=== PATIENT | female | born 1940 | race Caucasian/White ===

== ENCOUNTER 2025-10-21 09:22 | Emergency (ER) | payer MEDICARE, OTHER, SELFPAY ==
--- OUTSIDE RECORDS SUMMARY | 2024-11-04 13:00 | XMS_ITS ---
Author Organization [facility] Address [address] [place] [address] Phone [phone] Care Team Providers Care Value Engineer Name Role Phone Milvia Lindsay Primary Care Provider FELIPE Marcus MD [phone] REASON FOR VISIT Follow Up Social History Sex Observation Social History Observation Description Sex Observation Female Encounters Date Time Type Facility Location Provider Diagnosis 11/04/2024 01:00 PM Office [facility] [address] [address] FELIPE MORA Plan Of Treatment No Information Medical (General) History Medical History History ICD Code HX of Lung CA COPDNeuropathysleep apneacataractsSurgical History Surgery Date(Month/Year) Hospitalization History Reason Date(Month/Year) Progress Notes * MARK Nori LDOB:[birth year] (84 yo F)Acc No.[id number]:11/04/2024 Patient:??Mark Nori Marx :??Felipe Mora MDDOB:1940?Age:83 Y ?Sex:FemaleDate:11/04/2024Phone:[phone]:[address] [place] [phone]:Milvia Valenciaivavicente Subjective: * Chief Complaints: * Follow Up * Electronic signature of YUKI MORA MD on 10/21/2025 at 09:26 AM BILINGUAL ELEMENTARY SCHOOL TEACHER Sign off status: Pending * Provider: Felipe Mora MD Date: 11/04/2024 Generated for Meagan olguin/Katerin/Kmitting on: 10/21/2025 09:26 AM B[employer]INGUAL ELEMENTARY SCHOOL TEACHER
--- OUTSIDE RECORDS SUMMARY | 2025-05-05 14:15 | XMS_ITS ---
Author Organization [facility] Address [address] [place] [address] Phone [phone] Care Team Providers Care Claims Associate Name Role Phone Milvia Lindsay Primary Care Provider Nick LANGFORD MD, FELIPE Olmos REASON FOR VISIT Ears are plugged Social History Sex Observation Social History Observation Description Sex Observation Female Encounters Date Time Type Facility Location Provider Diagnosis 05/05/2025 02:15 PM Office Visit [facility] [address] [place] [address] FELIPE LANGFORD Plan Of Treatment No Information Medical (General) History Medical History History ICD Code HX of Lung CA COPDNeuropathysleep apneacataractsSurgical History Surgery Date(Month/Year) Hospitalization History Reason Date(Month/Year) Progress Notes * JAMILAGASTON Nori LDOB:[birth year] (84 yo F)Acc No.[id number]:05/05/2025 Patient:??Nori Miranda Araseli :??Felipe Langford, MDDOB:1940?Age:84 Y ?Sex:FemaleDate:05/05/2025Phone:[phone]:[address] [place] [phone]:Milvia Lindasy Subjective: * Chief Complaints: * Ears are plugged * Electronic signature of YUKI LANGFORD MD on 10/21/2025 at 09:25 AM PATENT SEARCHER Sign off status: Pending * Provider: Felipe Langford MD Date: 05/05/2025 Generated for Meagan olguin/Katerin/Kmitting on: 10/21/2025 09:25 AM PATENT SEARCHER
--- OUTSIDE RECORDS SUMMARY | 2025-09-14 13:00 | XMS_ITS | Encounter Summary ---
Author Organization [facility] Address [address] [place] [address]. [place] [address] Care Team Providers Care Heating Unit Mechanic Name Role Phone Milvia Cardona MD Primary Care P rovider Milvia Cardona MD Unavailable Carmen Diaz MD Unavailable Herbert Rdz MD Unavailable Monie Holbrook [facility] Unavailable Monie Holbrook [facility] Unavailable Reason for Visit * Diagnostic Imaging CT Scan (Routine) - ClosedSpecialtyDiagnoses / Procedures Referred By ContactReferred To ContactRadiology. Diagnoses Malignant neoplasm of bronchus and lung (H) Procedures CT Chest w/o Contrast Timoteo Goodwin MD [facility] [address] [place] [address] Phone: tel: fax: Referral IDStatusReasonStart DateExpiration DateVisits RequestedVisits [id number] Encounter Details DateTypeDepartmentCare Team (Latest Contact Info)Opuvmdtujwf85/17/2025 1:00 PM CSTAncillary Procedure [facility] [address] [place] [phone] Timoteo Goodwin MD [facility] [address] [place] [place] [address] Malignant neoplasm of bronchus and lung (H) Social History Tobacco UseTypesPacks/DayYears UsedDateSmoking Tobacco: VdvcowHtcffsojec9Ydej: 1989Passive Smoke Exposure: PastSmokeless Tobacco: NeverAlcohol UseStandard Drinks/WeekCommentsYes0 (1 standard drink = 0.6 oz pure alcohol)few drinks a monthPHQ-2AnswerDate RecordedPHQ-2 Awdhb337[facility] [place] of Occup[facility] - Occupational Stress QuestionnaireAnswerDate RecordedDo you feel stress - tense, restless, nervous, or anxious, or unable to sleep at night because yourmind is troubled all the time - these days?Only a wrbdyj7010/01/2024 Exercise Vital SignAnswerDate RecordedOn average, how many days per week do you engage in moderate to strenuous exercise (like a brisk walk)?0 days10/01/2024On average, how many minutes do you engage in exercise at this level?0 min 10/01/2024dolescent EducationAnswerDate RecordedGetting School Help NeededNot on file07/24/2023Food InsecurityAnswerDate RecordedWithin the past 12 months, did you worry that your food would run out before you got money to buy more?No 05/06/2025Within the past 12 months, did the food you bought just not last and you didn???t have money to getmore?No05/06/2025Housing StabilityAnswerDate RecordedDo you have housing? (Housing is defined as stable permanent housing and does not include staying outside in a car, in a tent, in an abandoned building, in an overnight halfway, or couch-surfing.)Yes05/06/2025re you worried about losing your housing?No05/06/2025Financial Resource StrainAnswerDate Recorded Within the past 12 months, have you or your family members you live with been unable to get utilities (heat, electricity) when it was really needed?No 07/09/2025Transportation NeedsAnswerDate RecordedWithin the past 12 months, has lack of transportation kept you from medical appointments, getting your medicines, non-medical meetings or appointments, work, or from getting things that you need?No05/06/2025Interpersonal SafetyAnswerDate RecordedDo you feel physically and emotionally safe where you currently live?Yes05/06/2025Within the past 12 months, have you been hit, slapped, kicked or otherwise physically hurt by someone?No05/06/2025Within the past 12 months, have you been humiliated or emotionally abused in other ways by your partner or ex-partner?No05/06/2025 CommentsNoSex and Gender InformationValueDate RecordedSex Assigned at BirthNot on fileLegal SnmBtfspa13/04/2012 3:08 AM CSTGender IdentityNot on file Sexual OrientationNot on filedocumented as of this encounter Plan of Treatment DateTypeDepartmentCare Team (Latest Contact Info)Anyjvqscaky95/02/2026 1:00 PM CSTOffice Visit [facility] [address] [place] [phone] Mónica Collier APRN [facility] [address] [address] 11/09/2025 7:30 AM CSTHospital Encounter [facility] [address] [place] [phone] Sarah Martinez MD [facility] [address] [address] 11/09/2025 7:30 AM WHITE WASHER - 11/09/2025 9:15 AM [facility] [address] [place] [phone] Sarah Martinez MD [facility] [address] [id number] robotic assisted ion brochoscopy and endobroncial wbqhgqlayy11/09/2026 11:00 AM CSTOffice Visit [facility] [address] [facility] [address] [place] [phone] Milvia Cardona MD [address] [place], [place] [address] 12/07/2025 12:[address] [facility] [address] [facility] [place] [phone] Milvia Cardona MD [address] [place], [place] [address] 01/18/2026 9:00 AM CDTVirtual Visit [facility] [address] [facility] [address] [place] [phone] Monie Holbrook [facility] [address] [place], [place] [phone] NamePriorityAssociated DiagnosesDate/TimeBRONCHOSCOPY, ROBOT-ASSISTED ULTRASOUND, WITH BIOPSY Lung nodule 11/09/2025 7:30 AM CSTdocumented as of this encounter Procedures Procedure NamePriorityDate/TimeAssociated DiagnosisCommentsCT CHEST W/O CONTRAST Tmtdzdc4309/14/2025 1:07 PM WHITE WASHER Malignant neoplasm of bronchus and lung (H) documented in this encounter Results * CT Chest w/o Contrast (09/14/2025 1:07 PM WHITE WASHER)Anatomical RegionLaterality ModalityChest, SUBRAD CT BODY, UMP CT CHEST, RAD CTComputed TomographySpecimen (Source)Anatomical Location / LateralityCollection Method / VolumeCollection TimeReceived Time09/14/2025 1:07 PM WHITE WASHER Impressions 09/15/2025 10:46 AM WHITE WASHER IMPRESSION: 1. ??Interval increase in size of a lobulated now spiculated masslike area involving the posteromedial aspect of the right upper lung contacting the pleural surface and now measuring 3.2 x 2 cm, previously 3.1 x 1.3 cm. Given it has slightly more soft tissue density and spiculated appearance findings are highly suspicious for malignancy. 2. ??Stable posttreatment related changes left lower lobe. 3. ??New minimal right pleural fluid. Narrative 09/15/2025 10:46 AM WHITE WASHER EXAM: CT CHEST W/O CONTRAST LOCATION: [facility] DATE: 09/14/2025 INDICATION: Malignant neoplasm of bronchus and lung. Follow-up evaluation. COMPARISON: Multiple prior studies, most recent 09/10/2024, 09/10/2023, 09/11/2022 TECHNIQUE: CT chest without IV contrast. Multiplanar reformats were obtained. Dose reduction techniques were used. CONTRAST: None. FINDINGS: LUNGS AND PLEURA: New minimal right pleural fluid. Interval increase in size of a lobulated/spiculated masslike area involving the posteromedial aspect of the right upper lung contacting the pleural surface and now measuring 3.2 x 2 cm, previously 3.1 x 1.3 cm. Given it has slightly more soft tissue density and spiculated appearance findings are highly suspicious for malignancy. Consider PET CT evaluation. Area of volume loss in the left lower lobe with spiculation reflecting stable posttreatment related change measuring 3.5 x 2.1 cm. Minimal bilateral linear scarring. Unchanged at 3 mm nodule posterior aspect right upper lobe (4/39). Wedge resection right lung. Prior lobectomy. MEDIASTINUM/AXILLAE: Enlarged left thyroid lobe. No new lymphadenopathy. No pericardial fluid. Normal caliber thoracic aorta. Minimal vascular calcification. Normal caliber esophagus. CORONARY ARTERY CALCIFICATION: Moderate. UPPER ABDOMEN: Left upper pole renal cyst, no followup. MUSCULOSKELETAL: Degenerative hypertrophic changes in the spine. Postoperative changes cervical spine. Procedure Note Stanley Harris MD - 09/15/2025 EXAM: CT CHEST W/O CONTRAST LOCATION: [facility] DATE: 09/14/2025 INDICATION: Malignant neoplasm of bronchus and lung. Follow-upevaluation. COMPARISON: Multiple prior studies, most recent 09/10/2024, 09/10/2023, 09/11/2022 TECHNIQUE: CT chest without IV contrast. Multiplanar reformats wereobtained. Dose reduction techniques were used. CONTRAST: None. FINDINGS: LUNGS AND PLEURA: New minimal right pleural fluid. Interval increase insize of a lobulated/spiculated masslike area involving the posteromedialaspect of the right upper lung contacting the pleural surface and nowmeasuring 3.2 x 2 cm, previously 3.1 x 1.3 cm. Given it has slightly more soft tissue density and spiculatedappearance findings are highly suspicious for malignancy. Consider PET CTevaluation. Area of volume loss in the left lower lobe with spiculationreflecting stable posttreatment related change measuring 3.5 x 2.1 cm. Minimal bilateral linear scarring. Unchanged at 3 mm nodule posterior aspect right upper lobe (4/39). Wedge resection right lung. Prior lobectomy. MEDIASTINUM/AXILLAE: Enlarged left thyroid lobe. No new lymphadenopathy.No pericardial fluid. Normal caliber thoracic aorta. Minimal vascularcalcification. Normal caliber esophagus. CORONARY ARTERY CALCIFICATION: Moderate. UPPER ABDOMEN: Left upper pole renal cyst, no followup. MUSCULOSKELETAL: Degenerative hypertrophic changes in the spine.Postoperative changes cervical spine. IMPRESSION: 1. Interval increase in size of a lobulated now spiculated masslike area involving the posteromedial aspect of the right upper lung contacting thepleural surface and now measuring 3.2 x 2 cm, previously 3.1 x 1.3 cm.Given it has slightly more soft tissue density and spiculated appearance findings are highly suspiciousfor malignancy. 2. Stable posttreatment related changes left lower lobe. 3. New minimal right pleural fluid. Authorizing ProviderResult TypeResult StatusLouis Bunny Goodwin MDIMG CT ORDERABLESFinal Result documented in this encounter Visit Diagnoses Diagnosis Malignant neoplasm of bronchus and lung (H) Malignant neoplasm of bronchus and lung, unspecified site Lung nodule Solitary pulmonary nodule documented in this encounter Additional Health Concerns AssessmentNoted TimePHQ-9 Depression Total Score: 12:47 PM CDT documented as of this encounter Care Teams Team MemberRelationshipSpecialtyStart DateEnd Date Milvia Cardona, MD [address] [place] [address] PCP - GeneralInternal Medicine07/08/13 Milvia Cardona MD [address] [place] [address] Assigned PCP08/04/18 Carmen Diaz MD [address] [place] [address] HospitalistEndocrinology, Diabetes, and Metabolism03/13/22 Herbert Rdz MD [address] [place] [address] Assigned Surgical Provider03/20/24 Monie Holbrook Gavin [address] [place] [address] PharmacistPharmacist03/27/24 Monie Holbrook Gavin [address] [place] [address] Assigned MTM Pharmacist04/20/24documented as of this encounter
--- OUTSIDE RECORDS SUMMARY | 2025-10-05 11:00 | XMS_ITS | Encounter Summary ---
Author Organization [facility] Address [address] [place] [address] Care Team Providers Care Rn Ortho Name Role Phone Milvia Cardona MD Primary Care P rovider Milvia Cardona MD Unavailable Carmen Diaz MD Unavailable Herbert Rdz MD Unavailable [phone] Monie Holbrook [facility] Unavailable Monie Holbrook [facility] Unavailable Reason for Visit * ReasonCommentsRECHECK Encounter Details DateTypeDepartmentCare Team (Latest Contact Info)Zlpvmxiztwh86/08/2025 11:00 AM CSTOffice Visit [address] [place] [place] [address] Milvia Cardona MD [address] [place], [place] [address] HTN, goal below 150/90 (Primary Dx); Gastroesophageal reflux disease with esophagitis without hemorrhage; Chronic obstructive pulmonary disease, unspecified COPD type (H); Dizziness -- chronic, Neg work up; Anxiety; Morbid obesity (H); JOHNY (obstructive sleep apnea); Hyperlipidemia LDL goal <130; Acquired hypothyroidism; JAMILA (generalized anxiety disorder); History of subtotal thyroidectomy Social History Tobacco UseTypesPacks/DayYears UsedDateSmoking Tobacco: RcajzaJzdyxvaqsj2Tybv: 1989Passive Smoke Exposure: PastSmokeless Tobacco: NeverAlcohol UseStandard Drinks/WeekCommentsYes0 (1 standard drink = 0.6 oz pure alcohol)few drinks a monthPHQ-2AnswerDate RecordedPHQ-2 Cgbcy901[facility] [place] of Occupational Health - Occupational Stress QuestionnaireAnswerDate RecordedDo you feel stress - tense, restless, nervous, or anxious, or unable to sleep at night because yourmind is troubled all the time - these days?Only a yulkwo2310/01/2024 Exercise Vital SignAnswerDate RecordedOn average, how many [...] in an abandoned building, in an overnight penitentiary, or couch-surfing.)Yes05/06/2025re you worried about losing your housing?No05/06/2025Financial Resource StrainAnswerDate Recorded Within the past 12 months, have you or your family members you live with been unable to get utilities (heat, electricity) when it was really needed?No 05/06/2025Transportation NeedsAnswerDate RecordedWithin the past 12 months, has [...] InformationValueDate RecordedSex Assigned at BirthNot on fileLegal XtdIbpoaz53/04/2012 3:08 AM CSTGender IdentityNot on file Sexual OrientationNot on filedocumented as of this encounter Last Filed Vital Signs Vital SignReadingTime TakenCommentsBlood Hjjvbqwj767/80112/06/2024 11:26 AM AGRICULTURAL EDUCATION PROFESSOR Cfeur399710/05/2025 10:45 AM KKSNavdektrquy55.7 ??C (98 ??F)10/05/2025 10:45 AM CSTRespiratory Cxyx655812/06/2024 10:45 AM CSTOxygen Btxkuixbuj07%10/05/2025 10:45 AM CSTInhaled Oxygen Concentration--Xlwqeg71.2 kg (201 lb)10/05/2025 10:45 AM PNWWezsol470.9 cm (4' 11)10/05/2025 10:45 AM CSTBody Mass Index40.6112/06/2024 10:45 AM CSTdocumented in this encounter Patient Instructions * Patient Instructions* Milvia Cardona MD - 10/05/2025 11:00 AM AGRICULTURAL EDUCATION PROFESSOR Increase Gabapentin to 300 mg in the evening and 300 mg at bedtime. If needed you van increase it to 600 mg in the evening and 300 mg at bedtime. Just be careful with the dizziness/drowziness next day. 2. Continue the other meds, same doses for now. 3. Monitor the blood pressure at home . If the blood pressure stays constantly higher than 170 takeHydralazine 10 mg daily 4. Keep the appointment for Nov 2025 -- we will try annual exam CULTURAL EDUCATION PROFESSOR documented in this encounter Progress Notes * Milvia Cardona MD - 10/05/2025 11:00 AM CST Images from the original note were not included. Patient's instructions / PLAN: Plan: Increase Gabapentin to 300 mg in the evening and 300 mg at bedtime. If needed you van increase it to 600 mg in the evening and 300 mg at bedtime. Just be careful with the dizziness/drowziness next day. 2. Continue the other meds, same doses for now. 3. Monitor the blood pressure at home . If the blood pressure stays constantly higher than 170 takeHydralazine 10 mg daily 4. Keep the appointment for Nov 2025 -- we will try annual exam ASSESSMENT & PLAN: 84-year-old woman with a history of right lung cancer (1997 right lobectomy, no radiation, no chemotherapy), COPD, hypertension, hyperlipidemia, obesity, GERD, adenomatous colon polyp, bilateral hip arthroplasty. Over the past 12 to 18 months, her case has become very complex due to persistent dizziness affecting her quality of life. In addition to dizziness, she now experiences intense anxiety, hand tremors, and peripheral neuropathy. The intense tremor is unlikely secondary to anxiety; possible Parkinson's disease or benign essential tremor is suspected. A neurology referral has been made. Anxiety is not well-controlled; an SSRI would be beneficial. I chose Cymbalta to also address foot pain. Chronic medical problems: - Chronic dizziness -- The patient has a history of dizziness and anxiety, with previous imaging showing age-related changes but no acute abnormalities. She has chronic conditions including hypertension, acid reflux, high cholesterol, COPD, and neuropathy. - Chronic Obstructive Pulmonary Disease (COPD) (J44.9): Managed with Trelegy Ellipta. - Chronic dizziness (R42): Stable, likely multifactorial with components of anxiety and possible vestibular dysfunction. - Anxiety (F41.9): Improved since last visit. - Neuropathy: Symptoms persist, managed with gabapentin. - Hypertension (I10): Controlled with losartan. - Hyperlipidemia: Managed with simvastatin. - GERD (K21.00): Managed with pantoprazole. - History of primary malignant neoplasm of lung (Z85.118). - Acquired hypothyroidism (E03.9). - Morbid obesity (E66.01). - JOHNY (obstructive sleep apnea) (G47.33). 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 Chr Med Prob are stable. Overall she is coping better with the dizziness. Dizziness little better in the last 2 weeks. It is because the blood pressure is on the high side? We will not change BP meds. Discussed R Lung mass increased in size. Suspicious for Ca. Already hx of Lung ca w lobectomy. F/up w dr Goodwin We reviewed her chronic medical conditions, recent test results, and current medications. Appropriate future tests and medication refills were ordered. Chief Complaint: Follow up chronic medical problems SUBJECTIVE: History of present illness Periph neurop. She feels than warm and she needs to use icepacks in the evening and before bedtime RUL mass - spiculated - suspicious for malignancy Had PET - results is not available. To be scheduled for IR biopsy w many questions - answered BP on the high side. Maybe it helps with the dizziness because she has been feeling little better in the last 2 w. ROS: ROS: negative for fever, chills, cough, wheezes, chest pain, shortness of breath, vomiting, abdominal pain, leg swelling OBJECTIVE: Physical Exam : Blood pressure (!) 148/68, pulse 83, temperature 98 ??F (36.7 ??C), temperature source Tympanic, resp. rate 14, height 1.499 m (4' 11), weight 91.2 kg (201 lb), SpO2 98%, not currently . NAD, appears comfortable Skin: no rashes Neck: supple, no JVD, No thyroidmegaly. Lymph nodes nonpalpable cervical and supraclavicular. Chest: clear to auscultation bilaterally, good respiratory effort Heart: S1 S2, RRR, no mgr appreciated Abdomen: soft, not tender, Extremities: no edema, Neurologic: A, Ox3, no focal signs appreciated PMHx: reviewed Past Medical History: Diagnosis Date Benign neoplasm of colon CERVICAL DISC DISPLACMNT 12/26/2004 COPD (chronic obstructive pulmonary disease) (H) Esophageal reflux 06/14/2006 GENERAL OSTEOARTHROSIS 06/20/2002 Glaucoma HTN, goal below 140/90 Hyperlipidemia LDL goal <130 08/28/2010 Neuropathy 03/2017 Personal history of malignant neoplasm of bronchus and lung resection Positive LIN (antinuclear antibody) normal esr. 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 Azul [facility] COLONOSCOPY N/A 06/17/2019 Procedure: COLONOSCOPY; Surgeon: Khurram Azul MD; Location: GI ESOPHAGOSCOPY, GASTROSCOPY, DUODENOSCOPY (EGD), COMBINED N/A 08/06/2014 Procedure: COMBINED ESOPHAGOSCOPY, GASTROSCOPY, DUODENOSCOPY (EGD); Surgeon: Khurram Azul MD;Location: GI ESOPHAGOSCOPY, GASTROSCOPY, DUODENOSCOPY (EGD), COMBINED N/A 06/02/2015 Procedure: COMBINED ESOPHAGOSCOPY, GASTROSCOPY, DUODENOSCOPY (EGD), BIOPSY SINGLE OR MULTIPLE; Surgeon: Deya Antonio MD; Location: GI ESOPHAGOSCOPY, GASTROSCOPY, DUODENOSCOPY (EGD), COMBINED N/A 02/12/2023 Procedure: ESOPHAGOGASTRODUODENOSCOPY, WITH BIOPSIES FOR EOSINOPHILLIC ESOPHAGITIS BY COLD BIOPSY FORCEPS; Surgeon: Stuart Forte MD; Location: GI ESOPHAGOSCOPY, GASTROSCOPY, DUODENOSCOPY (EGD), DILATATION, COMBINED N/A 03/30/2016 Procedure: COMBINED ESOPHAGOSCOPY, GASTROSCOPY, DUODENOSCOPY (EGD), DILATATION; Surgeon: Khurram Azul MD; Location: GI BEHAVIORAL THERAPIST SURGERY hysterectomy HEAD & NECK SURGERY LAPAROSCOPIC CHOLECYSTECTOMY N/A 05/06/2025 Procedure: ROBOT-ASSISTED LAPAROSCOPIC CHOLECYSTECTOMY; Surgeon: Herbert Rdz MD; Location: RHOR LUNG SURGERY right NECK SURGERY For pinched nerve, and cervical fusion. Had rods and pins placed ORTHOPEDIC SURGERY 11/2016 bilateral hips 08/2016 and 11/2016 PARATHYROIDECTOMY Left 01/17/2023 Procedure: Excision of left inferior parathyroid adenoma; Surgeon: Belkys Dennison MD; Location: RH OR [facility] NONSPECIFIC PROCEDURE retinal detach [facility] NONSPECIFIC PROCEDURE 1980 right thyroidectomy [facility] NONSPECIFIC PROCEDURE retinal detach Meds: reviewed Current Outpatient Medications Medication Sig Dispense Refill acetaminophen (TYLENOL) 500 MG tablet Take 2 tablets (1,000 mg) by mouth every 6 hours as needed for pain. albuterol (PROAIR HFA/PROVENTIL HFA/VENTOLIN HFA) 108 (90 Base) MCG/ACT inhaler Inhale 2 puffs intothe lungs every 6 hours as needed for shortness of breath, wheezing or cough azelastine (ASTELIN) 0.1 % nasal spray Long Bottom 1 spray into both nostrils 2 times daily. busPIRone (BUSPAR) 5 MG tablet Take 5 mg AM, 5 mg noon, and 10 mg bedtime 360 tablet 1 Avqtnukwucl-Ibunmpmzk-Ptfpcg (TRELEGY ELLIPTA) 100-62.5-25 MCG/ACT oral inhaler Inhale 1 puff into the lungs daily. 84 each 3 gabapentin (NEURONTIN) 300 MG capsule Take 1 capsule (300 mg) by mouth at bedtime. 90 capsule 1 losartan (COZAAR) 100 MG tablet Take 1 tablet by mouth once daily 90 tablet 2 pantoprazole (PROTONIX) 20 MG EC tablet Take 1 tablet by mouth once daily 90 tablet 1 simvastatin (ZOCOR) 20 MG tablet Take 1 tablet (20 mg) by mouth daily. 90 tablet 3 TRAVATAN 0.004 % OP SOLN Apply 1 drop to eye daily Both eyes TRELEGY ELLIPTA 100-62.5-25 MCG/INH oral inhaler INHALE 1 PUFF BY MOUTH AT THE SAME TIME EVERY DAY.RINSE AND SPIT AFTER USE bisacodyl (DULCOLAX) 5 MG EC tablet Take 1 tablet (5 mg) by mouth daily. (Patient not taking: Reported on 08/12/2025) PERMETHRIN EX CPAP (E0601) machine for home use at pressure: same , Choice of mask (A7030 or A7034)w/full face cushion (A7031) x1/mo, nasal cushion (A7032) x2/mo, or nasal pillows (A7033) x 2/mo; Length of Need: 99 months; use: Daily. DME CORNER (Patient not taking: Reported on 08/12/2025) simethicone (MYLICON) 125 MG chewable tablet Take 125 mg by mouth 4 times daily as needed. (Patientnot taking: Reported on 08/12/2025) Soc Hx: reviewed Fam Hx: reviewed 42 minutes spent on the date of the encounter doing chart review, review of outside records, review of test results, interpretation of tests, patient visit, documentation, discussion with family and The longitudinal plan of care for the diagnosis(es)/condition(s) as documented were addressed during this visit. Due to the added complexity in care, I will continue to support Kathrine in the subsequent management and with ongoing continuity of care. Chart documentation was completed, in part, with a voice-recognition software ( [employer] or [employer]). Even though reviewed, some grammatical, spelling, and word errors may remain. Milvia Lindsay MD Internal Medicine CULTURAL EDUCATION PROFESSOR documented in this encounter Nursing Notes * Heike Mccrary LPN - 10/05/2025 11:00 AM CST Chief Complaint Patient presents with RECHECK initial BP (!) 148/68 Pulse 83 Temp 98 ??F (36.7 ??C) (Tympanic) Resp 14 Ht 1.499 m (4' 11) Wt 91.2 kg (201 lb) LMP (LMP Unknown) SpO2 98% BMI 40.60 kg/m?? Estimated body mass index is 40.6 kg/m?? as calculated from the following: Height as of this encounter: 1.499 m (4' 11). Weight as of this encounter: 91.2 kg (201 lb).. bp completed using cuff size large HEIKE MCCRARY LPN CULTURAL EDUCATION PROFESSOR documented in this encounter Plan of Treatment DateTypeDepartmentCare Team (Latest Contact Info)Vvtoxswpzty41/02/2026 1:00 PM CSTOffice Visit [facility] [address] [place] [phone] Mónica Collier APRN [facility] [address] [place] [address] 11/09/2025 7:30 AM CSTHospital Encounter [facility] [address] [place] [phone] Sarah Martinez MD [facility] [address] [place] [address] 11/09/2025 7:30 AM AGRICULTURAL EDUCATION PROFESSOR - 11/09/2025 9:15 AM CSTSurgery [facility] [address] [place] [phone] Sarah Martinez MD [facility] [address] [place] [address] robotic assisted ion brochoscopy and endobroncial kyvtkzqhrp40/09/2026 11:00 AM CSTOffice Visit [address] [place] [phone] Milvia Cardona MD [address] [place], [place] [address] 12/07/2025 12:30 PM CSTAppointment [facility] [address] [facility], [address] [place] [phone] Milvia Cardona MD [address] [place] [address] 01/18/2026 9:00 AM CDTVirtual Visit [facility] [address] [facility] [address] [place] [phone] Monie Holbrook [facility] [address] [place], [place] [address] NamePriorityAssociated DiagnosesDate/TimeBRONCHOSCOPY, ROBOT-ASSISTED ULTRASOUND, WITH BIOPSY Lung nodule 11/09/2025 7:30 AM CSTdocumented as of this encounter Visit Diagnoses Diagnosis HTN, goal below 150/90- Primary Gastroesophageal reflux disease with esophagitis without hemorrhage Chronic obstructive pulmonary disease, unspecified COPD type (H) Dizziness -- chronic, Neg work up Dizziness and giddiness Anxiety Anxiety state, unspecified Morbid obesity (H) Morbid obesity JOHNY (obstructive sleep apnea) Obstructive sleep apnea (adult) (pediatric) Hyperlipidemia LDL goal <130 Other and unspecified hyperlipidemia Acquired hypothyroidism Unspecified hypothyroidism JAMILA (generalized anxiety disorder) Generalized anxiety disorder History of subtotal thyroidectomy Other postprocedural status Lung nodule Solitary pulmonary nodule documented in this encounter Additional Health Concerns AssessmentNoted TimePHQ-9 Depression Total Score: 12:47 PM CDT documented as of this encounter Care Teams Team MemberRelationshipSpecialtyStart DateEnd Date Milvia Cardona MD [address] [place] [address] PCP - GeneralInternal Medicine07/08/13 Milvia Cardona MD [address] [place] [address] Assigned PCP08/04/18 Carmen Diaz MD [address] [place] [address] HospitalistEndocrinology, Diabetes, and Metabolism03/13/22 Herbert Rdz MD [address] [place], [place] [address] Assigned Surgical Provider03/20/24 Monie Holbrook RPH [address] [place] [address] PharmacistPharmacist03/27/24 Monie Holbrook RPH [address] [place] [address] Assigned [place] Pharmacist04/20/24documented as of this encounter
--- OUTSIDE RECORDS SUMMARY | 2025-10-21 09:26 | XMS_ITS | Patient Health Record ---
Author Organization [facility] Address [address] [place] [address] Care Team Providers Care Mock Up Maker Name Role Phone Evonne Salas Primary Care Provider Broderick Santana Unavailable [phone] Allergies Allergen (clinical drug ingredient) Drug/Non Drug Allergy documented on EMR Reaction Allergy Type Onset Date Status sulfasalazine sulfasalazine Unknown Drug Allergy Active Reason For Referral No Information Medications Medication SIG (Take, Route, Frequency, Duration) Notes Start Date End Date Status Tylenol Activepantoprazole 40 mg delayed release tablet1 tab(s) orally once a day; Duration: 30 day(s)10/13/2019ActiveomeprazoleActivelosartanActiveescitalopram ActivegabapentinActiveCalcium 600+DActiveTravatanActiveMelatoninActive simvastatinActiveAspir 81Active Social History Tobacco Use: Social History Observation Description Date Details (start date - stop date) Former Smoker NA - NA Social History Social HistorySocial InfoQuestionAnswerNotesSmokingAre you a:former smoker? How long has it been since you last smoked?> 10 yearsAdditional DetailsCategory Social InfoOptionsDetailsSocial HistoryAlcoholyesoccasional Problems Problem Type SNOMED Code ICD Code Onset Dates Problem Status W/U Status Risk Notes Problem Gastro-esophageal re flux disease without esophagitis (265244855) Gastro-esophageal reflux disease without esophagitis (K21.9) ActiveconfirmedProblemEssential hypertension (46381761)Essential (primary) hypertension (I10)ActiveconfirmedProblemHyperlipidemia (75196416)Hyperlipidemia, unspecified (E78.5)ActiveconfirmedProblemDysphagia (69423374)Dysphagia (R13.10) Activeconfirmed Plan Of Treatment Pending Test Test Name Order Date EGD 10/02/2019 Insurance Providers Payer Name Payer Address Payer Phone Subscriber Number Group Number Insured Name Patient Relationship to Insured Coverage Start Date Coverage End Date Medicare [address] [place] [phone] [id number] [employer] [place] - patient is the insuredMutual of [address] Attn Claims Dept [place], [place] [id number] Nori Vergara Self - patient is the insured Medical (General) History Medical History History ICD Code Hyperlipidemia HypertensionCOPDGERDSurgical History Surgery Date(Month/Year) Left hip replacement Right hip replacementKnee replacementAppendectomyTonsillectomyCataract
--- OUTSIDE RECORDS SUMMARY | 2025-10-21 09:26 | XMS_ITS | Encounter Summary ---
Author Organization [facility] Address [address] [place] [address] Care Team Providers Care Engineering Technical Writer Name Role Phone Milvia Cardona MD Primary Care P rovider Milvia Cardona MD Unavailable Carmen Diaz MD Unavailable Herbert Rdz MD Unavailable Monie Holbrook [facility] Unavailable Monie Holbrook [facility] Unavailable [phone] Encounter Details DateTypeDepartmentCare Team (Latest Contact Info)Xaudvftaiso61/08/2025Travel Social History Tobacco UseTypesPacks/DayYears UsedDateSmoking Tobacco: HelzjgXprabzqvqg3Htjk: 1989Passive Smoke Exposure: PastSmokeless Tobacco: NeverAlcohol UseStandard Drinks/WeekCommentsYes0 (1 standard drink = 0.6 oz pure alcohol)few drinks a monthPHQ-2AnswerDate RecordedPHQ-2 Znpfn551Finblue mountain hospital [place] of Occupational Health - Occupational Stress QuestionnaireAnswerDate RecordedDo you feel stress - tense, restless, nervous, or anxious, or unable to sleep at night because yourmind is troubled all the time - these days?Only a bezcpc7910/01/2024 Exercise Vital SignAnswerDate RecordedOn average, how many [...] in an abandoned building, in an overnight usp, or couch-surfing.)Yes05/06/2025re you worried about losing your [...] InformationValueDate RecordedSex Assigned at BirthNot on fileLegal CozZdhpsk47/04/2012 3:08 AM CSTGender IdentityNot on file Sexual OrientationNot on filedocumented as of this encounter Plan of Treatment DateTypeDepartmentCare Team (Latest Contact Info)Iyoefypxhfj28/02/2026 1:00 PM CSTOffice Visit [place] [address] [place] [phone] Mónica Collier APRN [facility] [address] [place], [place] [address] 11/09/2025 7:30 AM CSTHospital [facility]counter [facility] [address] [place] [phone] Sarah Martinez MD [facility] [address] [place] [address] 11/09/2025 7:30 AM SCALEMAKER - 11/09/2025 9:15 AM CSTSurgery [facility] [address] [place] [phone] Sarah Martinez MD [facility] [address] [place] [address] robotic assisted ion brochoscopy and endobroncial fagefrhcet24/09/2026 11:[address] [facility] [address] [place] [phone] Milvia Cardona MD [address] [place] [address] 12/07/2025 12:30 PM CSTAppointment [facility] [address] [place] [phone] Milvia Cardona MD [address] [place], [place] [address] 01/18/2026 9:[address] [facility] [address] [place] [phone] Monie Holbrook RPH [address] [place] [address] NamePriorityAssociated DiagnosesDate/TimeBRONCHOSCOPY, ROBOT-ASSISTED ULTRASOUND, WITH BIOPSY Lung nodule 11/09/2025 7:30 AM CSTdocumented as of this encounter Visit Diagnoses Not on filedocumented in this encounter Additional Health Concerns AssessmentNoted TimePQ-9 Depression Total Score: 12:47 PM CDT documented as of this encounter Care Teams Team MemberRelationshipSpecialtyStart DateEnd Date Milvia Cardona MD [address] [place], [place] [phone] PCP - GeneralInternal Medicine07/08/13 Milvia Cardona MD [address] [place], [place] [address] Assigned PCP08/04/18 Carmen Diaz MD [address] [place], [place] [address] HospitalistEndocrinology, Diabetes, and Metabolism03/13/22 Herbert Rdz MD [address] [place] [address] Assigned Surgical Provider03/20/24 Monie Holbrook RPH [address] [place] [address] PharmacistPharmacist03/27/24 Monie Holbrook RPH [address] [place] [address] [facility] Pharmacist04/20/24documented as of this encounter
--- OUTSIDE RECORDS SUMMARY | 2025-10-21 09:26 | XMS_ITS ---
Author Name Interface, [id number] lity Address [address] [facility] [address] [place] [address] [facility] Address [address] [facility] [address] [place] [address] Support Name Relationship Address Phone LILIBETH FLORES Spouse Unknown Unavailable Allergies and Adverse Reactions Medication/Group Name Reaction Severity Date Sulfa (Sulfonamide Antibiotics) 09/14/2025 Plan Date Type Value 09/14/2025 APPOINTMENT OFFICE FU 15 MIN NO TREATMENT 09/14/[address] SCAN 5 MIN 09/10/2024 APPOINTMENT OUTSIDE TEST 5 M IN 09/10/2024 APPOINTMENT OV 15 MIN 09/10/2023 APPOINTMENT OV 15 MIN 09/10/2023 APPOINTMENT OUTSIDE TEST 5 M IN 09/12/2023 LAB_ORDER Chest CT w/o IV contrast 09/10/2024 LAB_ORDER Chest CT w/o IV contrast 09/14/2025 LAB_ORDER Chest CT w/o IV contrast Reason for Visit OUTSIDE TEST 5 MIN Encounters Date Name 09/10/2023 Non-small cell lung cancer (disorder) Medications Date Name Route Dose Frequency Instructions Start Date End Date Status Fill Status Indication 09/10/2023 Calcium Carbonate Oral nhmkbnxigho68/14/2022Gabapentin JvgeMUDurilcg69/14/2022yanocobalamin Oraldaily otzbez1809/11/20224265Oycgrgonsqk-Yhdiobmca-Qkogckgm Inhaler 100 mcg-62.5 mcg-25 mcg/iivdlkqaqoyykre98/14/2022spirin Tpewmrumfh53/13/2023cetaminophen OralPRN qbtkcx2109/10/2023lbuterol HFA Inhaler 90 mcg/ihzplksztjrckhj36/14/2022Losartan SafyZXCpeemxj72/13/2023rednisone Cibharzbvs03/14/2022cetaminophen Oralactive 09/10/2023Hydrochlorothiazide Ktbmpvjfltbeoiz24/14/2022imvastatin Oralactive 09/11/2022antoprazole (Sodium) Oral Delayed Ufqhfislbzouscrotw67/14/2022 escitalopram Oral Elxgmtoydzngpmxcz84/13/2023robiotics Oraldailyactive Problems Diagnosis Status Date of Diagnosis Resolution Date Non-small cell lung cancer (disorder) Active Lung nodule, solitaryActive Vital Signs Date Type Value 09/10/2023 Intravascular Systolic 124 09/10/2023 Intravascular Diastolic 74 09/10/2023 Body Temperature 97.70 09/10/2023 Heart Beat 73.00 09/10/2023 Respiratory Rate 18.00 09/10/2023 BSA 1.90 09/10/2023 Pain Scale 0.00 09/10/2023 Weight 213.40 09/10/2023 Height 59.00 09/10/2023 BMI 43.10 09/10/2023 Oxygen Saturation 93.00 Notes Section * Thoracic Visit Note Patient Name: NORI FLORES Date of :??1940 Date:??09/14/2025 THORACIC VISIT NOTE ??Mrs. Nori Flores??is seen in follow-up visit on 09/14/2025. 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 She had an area of organizing??lipoid pneumonia in the right middle lung which alsoresected.?? She is following regular basis.?? Her tolerance to activity is adequate.?? She has no significant respiratory symptoms.?? She has no symptoms of bone or brain metastases. A CT scan of the chest was done today.?? There is a masslike opacity left lower lobe lung which been stable for years.?? In the right lung disease??slightly enlarged??nodular opacity.?? This was reviewed in details.?? I will set up for a PET scan and follow-up with her as soon as this is completed. Timoteo Goodwin MD [facility] Timoteo Goodwin MD Copy to: Milvia Lindsay MD FAX Rufino Nash MD (Referring) Electronically signed by Timoteo Goodwin MD 09/16/2025 10:52 FORMING FIXER * Thoracic Visit Note Patient Name: NORI FLORES Date of :??1940 Date:??09/10/2023 THORACIC VISIT NOTE ??Mrs. Nori Flores??is seen in follow-up visit on 09/10/2023.?? She underwent in April 1998??a right thoracotomy with a right upper lobectomy??for a moderately well-differentiated adenocarcinoma of the right upper lobe lung.?? She had an area of organizing lipoid pneumonia??in the right middle lung which was also resected.?? She has been followed on a regular basis.?? Her tolerance to activity is good.?? She has no significant respiratory symptoms.?? She has no symptoms of bone or brain metastases. A follow-up CT scan of the chest??was done. ??The??masslike opacity in the??left lower lobe lung isstable and this has been present??for years.?? There is also a 2.4 cm nodule in the right lung??which is also stable.?? I do not see any suspicious findings for recurrent or metastatic disease.?? I will see her in 1 year with follow-up CT scan. Timoteo Goodwin MD [facility] Timoteo Goodiwn MD Copy to: Milvia Lindsay MD FAX Rufino Nash MD (Referring) Electronically signed by Timoteo Goodwin MD 09/16/2023 14:02 FORMING FIXER
--- OUTSIDE RECORDS SUMMARY | 2025-10-21 09:26 | XMS_ITS ---
Author Name Interface, [id number] lity Address [address] [facility] [address] [place] [address] [facility] Address [address] [facility] [address] [place] [address] Support Name Relationship Address Phone LILIBETH FLORES Spouse Unknown Unavailable Allergies and Adverse Reactions Medication/Group Name Reaction Severity Date Sulfa (Sulfonamide Antibiotics) 09/14/2025 Plan Date Type Value 11/09/2025 APPOINTMENT SURGERY 1 HR 10/01/2025 APPOINTMENT OUTSIDE TEST 5 M IN 09/14/2025 APPOINTMENT OFFICE FU 15 MIN NO TREATMENT 09/14/[address] SCAN 5 MIN 09/14/2025 LAB_ORDER Chest CT w/o IV contrast 10/01/2025 LAB_ORDER PET/CT scan, sku ll base/mid thigh 09/14/2026 LAB_ORDER Chest CT w/o IV contrast Reason for Visit OUTSIDE TEST 5 MIN Encounters Date Name 09/14/2025 Lung nodule, solitar y 09/14/2025 Non-small cell lung cancer (disorder) Medications Date Name Route Dose Frequency Instructions Start Date End Date Status Fill Status Indication 09/10/2023 Calcium Carbonate Oral ohcyihptgeu83/14/2022antoprazole (Sodium) Oral Delayed Releasedailyactive 09/11/2022yanocobalamin Eisqxmojutyjzgj43/14/0209Hibzpgwtdxu-Fkntcubtg-Jcxjxvht Inhaler 100 mcg-62.5 mcg-25 mcg/oyfzkmscubcxfhq26/14/2022spirin Oralactive 09/10/2023cetaminophen BpbjHVCovules07/13/2023lbuterol HFA Inhaler 90 mcg/ztesffmilozyzlb19/14/2022Losartan XripXOLhfhogo61/13/2023rednisone Oral xdbtxr6609/11/2022cetaminophen Upqnvlvvco15/13/2023Hydrochlorothiazide Oraldaily dqotie4509/11/2022escitalopram Oral Pygwngwzoekbgvzib27/14/2022Gabapentin OralTID qamemt5509/11/2022imvastatin Wacflevzhy62/13/2023Probiotics Oraldailyactive Problems Diagnosis Status Date of Diagnosis Resolution Date Non-small cell lung cancer (disorder) Active Lung nodule, solitaryActive Vital Signs Date Type Value 09/14/2025 Body Temperature 97.60 09/14/2025 Heart Beat 81.00 09/14/2025 Respiratory Rate 16.00 09/14/2025 Height 59.00 09/14/2025 Intravascular Systolic 164 09/14/2025 Intravascular Diastolic 79 09/14/2025 Pain Scale 0.00 09/14/2025 Oxygen Saturation 95.00 Notes Section * Thoracic Visit Note Patient [...] as this is completed. Timoteo Goodwin MD [facility] Timoteo Goodwin MD Copy to: Milvia Lindsay MD FAX Rufino Nash MD (Referring) Electronically signed by Timoteo Goodwin MD 09/16/2025 10:52 FISHING LURE ASSEMBLER
--- OUTSIDE RECORDS SUMMARY | 2025-10-21 09:26 | XMS_ITS | Encounter Summary ---
Author Organization [place] Address [address] [place] [address] Care Team Providers Care Funeral Pre Arrangement Counselor Name Role Phone Milvia Cardona MD Primary Care P rovider Milvia Cardona MD Unavailable Carmen Diaz MD Unavailable Herbert Rdz MD Unavailable [phone] Monie Holbrook [facility] Unavailable Monie Holbrook [facility] Unavailable [phone] Encounter Details DateTypeDepartmentCare Team (Latest Contact Info)Gpemvbgmhrn39/17/2025Travel Social History Tobacco UseTypesPacks/DayYears UsedDateSmoking Tobacco: OcteppVobglfsmbv7Qnqs: 1989Passive Smoke Exposure: PastSmokeless Tobacco: NeverAlcohol UseStandard Drinks/WeekCommentsYes0 (1 standard drink = 0.6 oz pure alcohol)few drinks a monthPHQ-2AnswerDate RecordedPHQ-2 Cpxpe995Finblue [facility] hospital [place] of Occupational [facility] - Occupational Stress QuestionnaireAnswerDate RecordedDo you feel stress - tense, restless, nervous, or anxious, or unable to sleep at night because yourmind is troubled all the time - these days?Only a sjvmwm7710/01/2024 Exercise Vital SignAnswerDate RecordedOn average, how many [...] in an abandoned building, in an overnight snf, or couch-surfing.)Yes05/06/2025re you worried about losing your [...] InformationValueDate RecordedSex Assigned at BirthNot on fileLegal IzwSncgnh04/04/2012 3:08 AM CSTGender IdentityNot on file Sexual OrientationNot on filedocumented as of this encounter Plan of Treatment DateTypeDepartmentCare Team (Latest Contact Info)Mzkmjhcoetk09/02/2026 1:00 PM CSTOffice Visit [place] [address] [place] [phone] Mónica Collier APRN MILLING SUPERVISOR [address] [place], [place] [address] 11/09/2025 7:30 AM CSTHospital Encounter [facility] [address] [place] [phone] Sarah Martinez MD [facility] [address] [place] [address] 11/09/2025 7:30 AM ABATEMENT WORKER - 11/09/2025 9:15 AM CSTSurgery [facility] [address] [place] [phone] Sarah Martinez MD [facility] [address] [place] [address] robotic assisted ion brochoscopy and endobroncial lopdofdspk25/09/2026 11:00 AM CSTOffice Visit [facility] [address] [place] [phone] Milvia Cardona MD [address] [place] [address] 12/07/2025 12:30 PM CSTAppointment [facility] [address], [address] [place] [phone] Milvia Cardona MD [address] [place], [place] [address] 01/18/2026 9:00 AM CDTVirtual Visit [facility] [address] [place] [phone] Monie Holbrook RPH [address] [place] [address] NamePriorityAssociated DiagnosesDate/TimeBRONCHOSCOPY, ROBOT-ASSISTED ULTRASOUND, WITH BIOPSY Lung nodule 11/09/2025 7:30 AM CSTdocumented as of this encounter Visit Diagnoses Not on filedocumented in this encounter Additional Health Concerns AssessmentNoted TimePQ-9 Depression Total Score: 12:47 PM CDT documented as of this encounter Care Teams Team MemberRelationshipSpecialtyStart DateEnd Date Milvia Cardona MD [address] [place], [place] [phone] PCP - GeneralInternal Medicine07/08/13 Milvia Cardona MD [address] [place], [place] [address] Assigned PCP08/04/18 Carmen Diaz MD [address] [place], [place] [address] HospitalistEndocrinology, Diabetes, and Metabolism03/13/22 Herbert Rdz MD [address] [place] [address] Assigned Surgical Provider03/20/24 Monie Holbrook RPH [address] [place] [address] PharmacistPharmacist03/27/24 Monie Holbrook RPH [address] [place] [address] Assigned [facility] Pharmacist04/20/24documented as of this encounter
--- OUTSIDE RECORDS SUMMARY | 2025-10-21 09:26 | XMS_ITS | Clinical Summary ---
Author Organization [facility] Address [address] [place] [address] Care Team Providers Care Model Maker Name Role Phone Milvia Cardona MD Primary Care P rovider Misty Zelaya APRN, AIRPLANE CAPTAIN Unavailable [phone] Allergies Active AllergyReactionsCriticalityNoted DateCommentsAtorvastatin CalciumNausea 06/20/20028927Zalpzauarl12/30/2013 cough UybnfkLkqekvHkbu85/23/2002Pravastatin RxatfkFxnhwu91/23/2002Sulfa (Sulfonamide Antibiotics)JruzsHtww48/20/2021 Medications MedicationSigDispense QuantityRefillsLast FilledStart DateEnd DateStatus albuterol, conc: 2.5 mg/3 mL, (PROVENTIL, VENTOLIN) Inhl nebulizer solution Nebulize 2.5 mg once a day as needed.06/19/2021ctive aspirin 81 mg oral enteric coated tablet Take 81 tablets by mouth once daily.Active calcium carbonate-vitamin D3 500 mg, 1250 mg,-200 units (OSCAL-D) oral tablet Take 500 tablets by mouth once daily.Active kvqtffdrclb-qnjkrwjqw-yvyvcjyw (TRELEGY ELLIPTA) 200-62.5-25 mcg Inhl DsDv Inhale 1 puff Daily.08/08/2021ctive fluticasone 200 mcg-vilanterol 25 mcg (BREO ELLIPTA) 200-25 mcg/dose Inhl DsDv Inhale 1 puff Daily.08/08/2021ctive albuterol-ipratropium, conc: 3-0.5mg/3mL, (DUO-NEB) Inhl nebulizer solution Nebulize 3 mL three times a day.07/07/2021ctive simvastatin (ZOCOR) 20 mg oral tablet Take 20 mg by mouth Daily.08/08/2021ctive tiotropium (SPIRIVA) 18 mcg Inhl capsule with inhalation device Inhale 18 mcg Daily.08/08/2021ctive travoprost 0.004% (TRAVATAN Z) 0.004 % Opht ophthalmic (EYE) solution Instill 0.004 drops into the eye once daily.Active umeclidinium 62.5 mcg (INCRUSE ELLIPTA) 62.5 mcg/actuation Inhl DsDv Inhale 1 puff Daily.05/11/2021ctive acetaminophen (TYLENOL) 500 mg oral tablet Take 2 tablets (1,000 mg) by mouth.01/17/2023ctive predniSONE (DELTASONE) 10 mg oral tablet Prednisone Oral activeActive hydroCHLOROthiazide (HYDRODIURIL) 12.5 mg oral tablet Hydrochlorothiazide Oral daily activeActive gabapentin (NEURONTIN) 300 mg oral capsule Take 1 capsule (300 mg) by mouth twice a day. 180 capsule ctive pantoprazole (PROTONIX) 20 mg oral delayed release tablet Take 1 tablet (20 mg) by mouth once daily.04/28/2025tive busPIRone (BUSPAR) 5 mg oral tablet Take 1 tablet in the morning, 1 tablet at noon and 2 tablets at bedtime 5Active Losartan (COZAAR) 100 mg oral tablet Take 1 tablet (100 mg) by mouth once daily.5Active Active Problems ProblemNoted DateDiagnosed DateEndogenous lipoid aymmistdc45/06/2025Pulmonary mrybckzi19/06/2025Positive LIN (antinuclear antibody)06/03/2025Dizziness 05/25/2025Symptomatic qibxdrpgkiqbzt56/09/2025hronic obstructive pulmonary yupaeip8411/27/2024 Overview (06/03/2025): PFT 03/2015 w/ mild obstruction, positive bronchodilator response, hyperventilation, mild decreased gas transfer Laryngopharyngeal reflux (LPR)10/01/2024HTN, goal below 150/9008/29/2023 Vrsnpknzxzzbs52/09/3055Qbabky50/09/2021Hip pain05/06/2021ightheadedness 05/06/2021Osteoarthritis of hip05/06/20215282Bwutpbgftuj13/09/2021History of subtotal /05/2019Stricture of /04/2019 Overview (06/03/2025): Jossue santana, s/p dilation 12/08/15, Dr. Odom Closed injury of head08/06/2019Multiple nodules of lung08/06/2019Syncope and oeotuumq88/09/2019Morbid ycuuavz4407/17/2018Scoliosis deformity of spine01/15/2018 Generalized anxiety vfjlvexv06/19/2018Lumbar vlzdrgiefklsq71/19/2018Encounter to establish care07/22/20175129Hmvhwuq74/06/2258Tfiug77/02/2756Vatodhzj37/02/2015 Inflammatory disease of the central nervous ktvjky5011/12/2014Tubulovillous adenoma of colon04/28/2014History of gastrointestinal bpfmypr4309/10/2013Gastro- esophageal reflux disease with oumpetryusc12/13/2013 Overview (06/03/2025): esoph stricture dilated 06/02/15 Tietze's tfyllkt5501/13/2013enign essential lgqaistqzkpw95/03/2013 Overview (06/03/2025): Benign essential hypertension Disorder of urinary tract12/01/2012Malaise and odlcjyy6712/01/2012Pain in limb 12/01/2012dvance care orxjtlgw43/16/2011 Overview (06/03/2025): Advance Directive Problem List Overview: Name Relationship Phone Primary Health Care Agent Alternative Health Care Agent Discussed advance care planning with patient; information given to patient to review. 06/13/2011 Flatulence, eructation and gas pain10/24/2010History of primary malignant neoplasm of lung10/24/20105850Fblvuuootgrhxm60/27/2010Lumbar icubuf2710/24/2010 Hyperlipidemia LDL goal <81749Esophageal lvlzrn5606/14/2006Old retinal detachment, xtvajmn24/10/2002Nuclear cataract, nykrfauir47/10/2002 Immunizations ImmunizationAdministration DatesNext DueInfluenza Adjuvanted (Fluad Trivalent PF)11/04/2024Influenza High Dose (Fluzone Quadrivalent PF)08/29/2023,08/22/2022, 08/08/2021,08/05/2020Influenza high dose (Fluzone Trivalent PF)07/31/2019, 07/29/2018,07/19/2017,07/17/2016,07/20/2014,07/18/2013Influenza split virus hpwuucpjt08/03/2015,07/20/2010,08/23/2007Pfizer Comirnaty 12+ Yrs COVID Vaccine Tviyylez84/07/2025,3Pneumococcal KTC3372/Pneumococcal PCV20 12/16/2024Pneumococcal Polysaccharide AZKY4173,06/13/2001RSV Bivalent PF (Abrysvo)12/16/2024SPIKEVAX (Moderna) 12+ Yrs Monovalent COVID Vaccine (deckhand clam dredge) 11/22/2021Td Adult (5 Lf TT, PF)06/13/2011Td adult absorbed PF (2 Lf)05/28/2000 Tdap06/13/2011Zoster Live05/12/2009 Family History Medical HistoryRelationCommentsHeart DiseaseNeg Family HxOsteoporosisNeg Family Hx Social History Tobacco UseTypesPacks/DayYears UsedDateSmoking Tobacco: FormerSmokeless Tobacco: NeverAlcohol UseStandard Drinks/WeekCommentsNever0 (1 standard drink = 0.6 oz pure alcohol)CommentsUnknownSex and Gender InformationValueDate Recorded Sex Assigned at BirthNot on fileLegal PlyJgmljp11/16/2021 4:12 PM CDTGender IdentityNot on fileSexual OrientationNot on file Last Filed Vital Signs Vital SignReadingTime TakenCommentsBlood Wddtsvvl266/7610 10:38 AM CDT Fvnsn9907 10:38 AM CDTTemperature--Respiratory Rate--Oxygen Saturation-- Inhaled Oxygen Concentration--Weight--Height--Body Mass Index-- Plan of Treatment Health MaintenanceDue DateLast VpjrHgwiflfzCkdpbxmeixx93/23/1943Medicare Wellness Visit1942Osteoporosis Dnqjpgrai75/23/1943epression Assessment (PHQ-2)12/21/19436330Ifckdwfpkt83/23/1947Yearly Review of HCD1992Zoster Vaccine (2 of 3)/dult Tetanus Tpzcnra95, 06/13/2011, 05/28/2000COVID-19 Vaccine ( season)/04/2025, 08/29/2023, 11/22/2021Influenza Vaccine (#1)/04/2025, 08/29/2023, 08/22/2022, Additional history existsThyroid-Stimulating Hormone (TSH)09/29/2025 09/29/2024, 1Pneumococcal 50+ OytaoXgttsgedk70/18/2025, 07/15/2015, 04/21/2008, Additional history existsRSV GpqzpeufUhpopqcgj15/18/2025 Meningococcal B VaccineAged OutNo longer eligible based on patient's age to complete this topic Insurance Care Teams Team MemberRelationshipSpecialtyStart DateEnd Date Milvia Cardona MD PCP - General07/14/21 Misty Zelaya, HVAC INSTRUCTOR, AIRPLANE CAPTAIN [address] [facility] [address] [place] [address] Neurology11/15/23
--- OUTSIDE RECORDS SUMMARY | 2025-10-21 09:26 | XMS_ITS | Clinical Summary ---
Author Organization [facility] Address [address] [place] [address] Care Team Providers Care Food Production Manager Name Role Phone Milvia Cardona MD Primary Care P rovider Milvia Cardona MD Unavailable Carmen Diaz MD Unavailable Herbert Rdz MD Unavailable [phone] Monie Holbrook [facility] Unavailable Monie Holbrook [facility] Unavailable Allergies Active AllergyReactionsCriticalityNoted DateCommentsAtorvastatin CalciumNausea Low06/20/20020643DcsbxkjvhxFoalnRle10/30/2013 cough YfnnvfBclgbnVruf12/23/2002Pravastatin LgizuiSidjijQha46/23/2002Sulfa Antibiotics Hives,MgbkxxhUnew47/15/2024 Medications MedicationSigDispense QuantityRefillsLast FilledStart DateEnd DateStatus TRAVATAN 0.004 % OP SOLN Apply 1 drop to eye daily Both eyesActive TRELEGY ELLIPTA 100-62.5-25 MCG/INH oral inhaler INHALE 1 PUFF BY MOUTH AT THE SAME TIME EVERY DAY. RINSE AND SPIT AFTER USE 06/07/2022ctive albuterol (PROAIR HFA/PROVENTIL HFA/VENTOLIN HFA) 108 (90 Base) MCG/ACT inhaler Inhale 2 puffs into the lungs every 6 hours as needed for shortness of breath, wheezing or coughActive PERMETHRIN EX CPAP (E0601) machine for home use at pressure: same , Choice of mask (A7030 or A7034) w/full face cushion (A7031) x1/mo, nasal cushion (A7032) x2/mo, or nasal pillows (A7033) x 2/mo; Length of Need: 99 months; use: Daily. DME CORNER 5Active simethicone (MYLICON) 125 MG chewable tablet Take 125 mg by mouth 4 times daily as needed.Active acetaminophen (TYLENOL) 500 MG tablet Indications:HyperparathyroidismTake 2 tablets (1,000 mg) by mouth every 6 hours as needed for pain.5Active bisacodyl (DULCOLAX) 5 MG EC tablet Indications:ConstipationTake 1 tablet (5 mg) by mouth daily.5Active Additional Information Patient not taking.Reason: Other, Reported on 08/12/2025 simvastatin (ZOCOR) 20 MG tablet Indications:Hyperlipidemia LDL goal <130Take 1 tablet (20 mg) by mouth daily. 90 tablet 5Active azelastine (ASTELIN) 0.1 % nasal spray [place] 1 spray into both nostrils 2 times daily.Active losartan (COZAAR) 100 MG tablet Indications:HTN, goal below 150/90Take 1 tablet by mouth once daily 90 tablet 5Active busPIRone (BUSPAR) 5 MG tablet Indications:AnxietyTake 5 mg AM, 5 mg noon, and 10 mg bedtime 360 tablet 5Active gabapentin (NEURONTIN) 300 MG capsule Indications:Peripheral polyneuropathyTake 1 capsule (300 mg) by mouth at bedtime. 90 capsule 5Active Feosffydnkh-Sqvzufigl-Disoyb (TRELEGY ELLIPTA) 100-62.5-25 MCG/ACT oral inhaler Indications:Chronic obstructive pulmonary disease, unspecified COPD type (H) Inhale 1 puff into the lungs daily. 84 each 5Active pantoprazole (PROTONIX) 20 MG EC tablet Indications:Gastroesophageal reflux disease with esophagitis without hemorrhage Take 1 tablet (20 mg) by mouth daily. 90 tablet 5Active hydrALAZINE (APRESOLINE) 10 MG tablet Indications:HTN, goal below 150/90Take 1 tablet (10 mg) by mouth daily as needed for high blood pressure. 30 tablet 5Active pantoprazole (PROTONIX) 20 MG EC tablet Indications:Gastroesophageal reflux disease with esophagitis without hemorrhage Take 1 tablet by mouth once daily 90 tablet Discontinued(Reorder (No AVS)) Active Problems ProblemNoted DateDiagnosed SeswNqvkxbxii94/28/2025 Assessment & Plan (05/25/2025 8:59 PM CDT): Chronic Symptomatic mdsuhugprvdcmf89/09/2025Laryngopharyngeal reflux (LPR)10/01/2024HTN, goal below 150/9008/29/20237339Vmdonkqyiqhvl28/09/7925Cfjswz95/09/2021Hip pain 05/06/20214056Ygqvffiyocwfnfz37/09/2021Osteoarthritis of hip05/06/2021Tachycardia 05/06/2021History of subtotal fstbvxxfzkuha18/05/2019Malaise and fatigue 10/02/2019Stricture of ejqauztaf75/04/2019 Overview (12/14/2023): Jossue santana, s/p dilation 12/08/15, Dr. Odom Closed injury of head08/06/2019Multiple nodules of lung08/06/2019Syncope and uobnipnh53/09/2019Morbid worocpk3907/17/2018Scoliosis deformity of spine01/15/2018 Generalized anxiety fimseytu74/19/2018Lumbar kjeeetuagwmfk51/19/2018PMH 2017: PMHx of R Lung Ca ( 1997 R lobectomy, no Rx, no chemo), COPD, HTN, Hyperlipidemia, obesity, GERD, adenom colon polyp, bilat hips arthroplasty, lives [place] 1[place]2 [place].07/22/20177044Fxtvuah84/06/4514Wzcttrma19/03/2015Cough 11/30/2014Inflammatory disease of the central nervous ewpcld8611/12/2014 Tubulovillous adenoma of colon - no polyps colonoscopy 2018 - no further hojiybdqvolgr67/01/2014Gastro-esophageal reflux disease with esophagitis 09/11/2013History of gastrointestinal weinydy9609/11/2013Tietze's disease 01/13/2013Disorder of urinary tract12/01/2012Pain in limb12/01/2012enign essential txxuqmnwacom57/03/2013 Overview (10/01/2024): Benign essential hypertension Advance care yfxctrhn09/16/2011 Overview (06/13/2011): Advance Directive Problem List Overview: Name Relationship Phone Primary Health Care Agent Alternative Health Care Agent Discussed advance care planning with patient; information given to patient to review. 06/13/2011 History of primary malignant neoplasm of lung10/25/2010Flatulence, eructation and gas pain10/24/20109173Gzzqnxcimslitv90/27/2010Hyperlipidemia LDL goal <130 08/28/2010ESOPHAGEAL EKNLEU1206/14/2006Generalized osteoarthrosis, unspecified site06/20/2002Positive LIN (antinuclear antibody) Resolved Problems ProblemNoted DateDiagnosed DateResolved DateNon-small cell lung oyhanf9612/14/2023 06/13/2024Endogenous lipoid xaudyimnw73/Pulmonary embolism /dvanced directives, counseling/txwbibiqpg05/03/2019 04/14/2024Mild chronic obstructive pulmonary boxjezh94 Overview (10/01/2024): Mild chronic obstructive pulmonary disease - PFT 03/2015 w/ mild obstruction, positive bronchodilator response, hyperventilation, mild decreased gas transfer Lung Ca, f/u with dr Goodwin ([facility]) ^^^^^^^ ( 1998, R lobectomy, no Rx or chemo) 02/04/enign essential ezbbhxvooryt06Other postprocedural status(V45.89)COPD, moderate ([facility]) ^^^ Displacement of cervical intervertebral disc without rxphlpkazj75HTN, goal below 140/9008/29/2023 Encounters DateTypeDepartmentCare GipaFumqotdgtim50/08/2025 11:00 AM CSTOffice Visit [facility] [address] [place] [phone] Milvia Cardona MD HTN, goal below 150/90 (Primary Dx); Gastroesophageal reflux disease with esophagitis without hemorrhage; Chronic obstructive pulmonary disease, unspecified COPD type (H); Dizziness -- chronic, Neg work up; Anxiety; Morbid obesity (H); JOHNY (obstructive sleep apnea); Hyperlipidemia LDL goal <130; Acquired hypothyroidism; JAMILA (generalized anxiety disorder); History of subtotal hycowvrsncaht99/08/9615Jmlibj07/17/2025 1:00 PM CSTAncillary Procedure [facility] [address] [place] [phone] Timoteo Goodwin MD Malignant neoplasm of bronchus and lung (H)09/14/20256190Ntwsoc08/15/2025 10:00 AM CDTOffice Visit [facility] [address] [place] [phone] Milvia Cardona MD Chronic obstructive pulmonary disease, unspecified COPD type (H) (Primary Dx); Dizziness -- chronic, Neg work up; PMH 2017: PMHx of R Lung Ca ( 1997 R lobectomy, no Rx, no chemo), COPD, HTN, Hyperlipidemia, obesity, GERD, adenom colon polyp, bilat hips arthroplasty, [place] for 1/[place].; Anxiety; HTN, goal below 150/90; History of subtotal thyroidectomy; History of primary malignant neoplasm of lung; Acquired hypothyroidism; Gastroesophageal reflux disease with esophagitis without hemorrhage; Morbid obesity (H); JOHNY (obstructive sleep apnea)08/12/2025Travelfrom Last 3 Months Immunizations ImmunizationAdministration DatesNext DueCOVID-19 12+ (Pfizer)08/29/2023OVID-19 Monovalent 18+ (Moderna)11/22/2021Flu 65+ (Fluad)11/04/2024Influenza (High Dose) Trivalent,PF (Fluzone)07/31/2019,07/29/2018,07/19/2017,07/17/2016,07/20/2014, 07/18/2013Influenza (IIV3) PF08/31/2015,07/20/2010,08/23/2007Influenza Vaccine 65+ (Fluzone HD)08/29/2023,08/22/2022,08/08/2021,08/05/2020Pneumo Conj 13-V (2010&after)07/15/2015Pneumococcal 20 valent Conjugate (Prevnar 20)12/16/2024 Pneumococcal 23 yfinld6804/21/2008,06/13/2001RSV (Abrysvo)12/16/2024TD,PF 7+ (Tenivac)06/13/2011,05/28/2000TDAP (Adacel,Boostrix)06/13/2011Td (Adult), Tuheucxp05/31/2000Zoster vaccine, live05/12/2009 Family History Medical HistoryRelationCommentsNo Known ProblemsBrotherHeart DiseaseFatherBreast CancerMaternal AuntBreast CancerMaternal GrandmotherAlzheimer DiseaseMother OsteoporosisMotherBlood DiseasePaternal GrandfatherCancerPaternal GrandfatherNo Known ProblemsPaternal GrandmotherColon CancerNo family hx ofOvarian CancerNo family hx ofRelationStatusCommentsBrotherDeceasedDaughterFatherDeceasedMaternal AuntMaternal GrandmotherDeceasedMotherDeceasedPaternal AuntPaternal Grandfather DeceasedPaternal GrandmotherDeceasedSisterSon Social History Tobacco UseTypesPacks/DayYears UsedDateSmoking Tobacco: ZhekerKjjwuikjpz7Kmeo: 1990Passive Smoke Exposure: PastSmokeless Tobacco: Never Tobacco Cessation:Counseling Given: Yes Alcohol UseStandard Drinks/WeekCommentsYes0 (1 standard drink = 0.6 oz pure alcohol)few drinks a monthPHQ-2AnswerDate RecordedPHQ-2 Dxojf182[facility] [place] of Occup[facility] - Occupational Stress QuestionnaireAnswerDate RecordedDo you feel stress - tense, restless, nervous, or anxious, or unable to sleep at night because yourmind is troubled all the time - these days?Only a bjzaot9410/01/2024Exercise Vital SignAnswerDate RecordedOn average, how many days per week do you engage in moderate to strenuous exercise (like a brisk walk)?0 days10/01/2024On average, how many minutes do you engage in exercise at this level?0 min10/01/2024dolescent EducationAnswerDate RecordedGetting School Help NeededNot on file07/24/2023Food InsecurityAnswerDate RecordedWithin the past 12 months, did you worry that your food would run out before you got money to buy more?No05/06/2025Within the past 12 months, did the food you bought just not last and you didn???t have money to getmore?No05/06/2025Housing StabilityAnswer Date RecordedDo you have housing? (Housing is defined as stable permanent housing and does not include staying outside in a car, in a tent, in an abandoned building, in an overnight correction, or couch-surfing.)Yes05/06/2025re you worried about losing your housing?05/06/2025Financial Resource Strain AnswerDate RecordedWithin the past 12 months, have you or your family members you live with been unable to get utilities (heat, electricity) when it was really needed?No05/06/2025Transportation NeedsAnswerDate RecordedWithin the past 12 months, has lack of transportation kept you from medical appointments, getting your medicines, non-medical meetings or appointments, work, or from getting things that you need?No05/06/2025Interpersonal SafetyAnswerDate Recorded Do you feel physically and emotionally safe where you currently live?Yes 05/06/2025Within the past 12 months, have you been hit, slapped, kicked or otherwise physically hurt by someone?No05/06/2025Within the past 12 months, have you been humiliated or emotionally abused in other ways by your partner or ex-partner?No05/06/2025CommentsNoSex and Gender InformationValueDate RecordedSex Assigned at BirthNot on fileLegal CfyDhnxub68/04/2012 3:08 AM CORPORATE OPERATIONS COMPLIANCE MANAGER Gender IdentityNot on fileSexual OrientationNot on file Last Filed Vital Signs Vital SignReadingTime TakenCommentsBlood Ffsxxnfs508/80112/06/2024 11:26 AM CORPORATE OPERATIONS COMPLIANCE MANAGER Cekzz248010/05/2025 10:45 AM OTVHfqqbqgviqz22.7 ??C (98 ??F)10/05/2025 10:45 AM CSTRespiratory Nvnc908512/06/2024 10:45 AM CSTOxygen Ghvfgqesah46%10/05/2025 10:45 AM CSTInhaled Oxygen Concentration--Kihejr23.2 kg (201 lb)10/05/2025 10:45 AM MWYSshgsi788.9 cm (4' 11)10/05/2025 10:45 AM CSTBody Mass Index40.6112/06/2024 10:45 AM CORPORATE OPERATIONS COMPLIANCE MANAGER Plan of Treatment DateTypeDepartmentCare Team (Latest Contact Info)Mjfrvigtivd01/02/2026 1:00 PM CSTOffice Visit [facility] [address] [place] [phone] Mónica Collier APRN INSTRUMENT MAKER APPRENTICE [address] [place] [address] 11/09/2025 7:30 AM CSTHospital Encounter [facility] [address] [place] [phone] Sarah Martinez MD [facility] [address] [place] [address] 11/09/2025 7:30 AM CORPORATE OPERATIONS COMPLIANCE MANAGER - 11/09/2025 9:15 AM CSTSurgery [facility] [address] [place] [phone] Sarah Martinez MD [facility] [address] [place] [phone] robotic assisted ion brochoscopy and endobroncial sgranlcjjg89/09/2026 11:00 AM CSTOffice Visit [facility] [address] [facility] [address] [place] [phone] Milvia Cardona MD [address] [place], [place] [address] 12/07/2025 12:30 PM CSTAppointment [facility] [address] [facility] [place] [phone] Milvia Cardona MD [address] [place], [place] [address] 01/18/2026 9:00 AM CDTVirtual Visit [facility] [address] [place] [phone] Monie Holbrook [facility] [address] [place], [place] [phone] NamePriorityAssociated DiagnosesDate/TimeBRONCHOSCOPY, ROBOT-ASSISTED ULTRASOUND, WITH BIOPSY Lung nodule 11/09/2025 7:30 AM CSTHealth MaintenanceDue DateLast DoneCommentsCOPD ACTION PLAN3CT NPEAHHCMMJZH87/23/1943FLEX SIG1942sDNA (Cologuard) 1940ZOSTER VACCINE (2 of 3)07/07/2009079365FWR42 DTAP/TDAP/TD VACCINE (3 - Td or Tdap), 06/13/2011, 05/28/2000, Additional history jopqpzZDEQNLDIGUM42, 06/17/2019, 06/17/2014, Additional history existsCOVID-19 VACCINE ( season)/04/2025, 08/29/2023, 11/22/2021INFLUENZA VACCINE (#1) /04/2025, 08/29/2023, 08/22/2022, Additional history existsLIPID , 08/29/2023, 08/16/2022, Additional history existsTSH W/FREE T4 YZSCAX90, 12/05/2023, 08/16/2022, Additional history existsFALL RISK CFMSZFLPTF75, 11/15/2023, 08/29/2023, Additional history existsMEDICARE ANNUAL WELLNESS VISIT, 08/29/2023, 08/22/2022, Additional history existsANNUAL REVIEW OF HM ORDERS , 06/13/2024, 08/22/2022BMP/11/2024, 09/29/2024, 12/05/2023, Additional history existsGAD BJSYPTLQZB41, 10/01/2024, 08/29/2023, Additional history existsADVANCE CARE OJLBAPCT16/02/2030 04/29/2025, 10/01/2024, 06/13/2024, Additional history dbphqmWOXK15/03/2034 03/31/2019, 03/31/2019, 07/07/2015, Additional history existsSPIROMETRYCompleted 11/27/2024, 11/22/2023, 11/22/2023, Additional history existsPNEUMOCOCCAL VACCINE 50+ BWBVVZyazltbxx78/18/2025, 07/15/2015, 04/21/2008, Additional history existsRSV FTLHLAFTcojqhmqj77/18/2025PHQ-2 (once per calendar year)Completed 04/29/2025, 04/29/2025, 11/24/2024, Additional history existsCOLORECTAL CANCER SCREENINGDiscontinuedHPV VACCINE (No Doses Required)CompletedMENINGITIS VACCINE Aged OutNo longer eligible based on patient's age to complete this topic Procedures Procedure NamePriorityDate/TimeAssociated DiagnosisCommentsCT CHEST W/O CONTRAST Plfnvze7009/14/2025 1:07 PM CORPORATE OPERATIONS COMPLIANCE MANAGER Malignant neoplasm of bronchus and lung (H) COMPREHENSIVE METABOLIC BODWUMaxagkk22/02/2025 2:02 PM CDT HTN, goal below 150/90 TSH WITH FREE T4 ETIROAYjnhzlh65/02/2024 9:42 AM CORPORATE OPERATIONS COMPLIANCE MANAGER Hyperlipidemia LDL goal <130 Peripheral polyneuropathy Routine general medical examination at a health care facility HTN, goal below 150/90 LIPID REFLEX TO DIRECT LDL BUJUFLnuobph01/02/2024 9:42 AM CORPORATE OPERATIONS COMPLIANCE MANAGER Hyperlipidemia LDL goal <130 Peripheral polyneuropathy Routine general medical examination at a health care facility HTN, goal below 150/90 PULMONARY FUNCTION TEST - HIM SCAN11/22/2023 12:00 AM CSTCOLONOSCOPYRoutine 06/17/2019 11:46 AM CDT DX BONE SBPFHAMBauzogp40/03/2019 2:42 PM CDT Asymptomatic postmenopausal status ZZCL FECAL COLORECTAL CANCER SCN-UGNVzxaivy00/10/2010 7:00 AM CDT Routine Medical Exam from Last 3 Months or Most Recently Relevant to Health Maintenance Results * CT Chest w/o Contrast (09/14/2025 1:07 PM CORPORATE OPERATIONS COMPLIANCE MANAGER)Anatomical RegionLaterality ModalityChest, SUBRAD CT BODY, UMP CT CHEST, RAD CTComputed TomographySpecimen (Source)Anatomical Location / LateralityCollection Method / VolumeCollection TimeReceived Time09/14/2025 1:07 PM CORPORATE OPERATIONS COMPLIANCE MANAGER Impressions 09/15/2025 10:46 AM CORPORATE OPERATIONS COMPLIANCE MANAGER IMPRESSION: 1. ??Interval increase in size of [...] right pleural fluid. Narrative 09/15/2025 10:46 AM CORPORATE OPERATIONS COMPLIANCE MANAGER EXAM: CT CHEST W/O CONTRAST LOCATION: [facility] DATE: 09/14/2025 INDICATION: Malignant neoplasm of bronchus [...] 09/15/2025 EXAM: CT CHEST W/O CONTRAST LOCATION: [facility] DATE: 09/14/2025 INDICATION: Malignant neoplasm of bronchus [...] fluid. Authorizing ProviderResult TypeResult StatusLouis Bunny Goodwin [facility] CT ORDERABLESFinal Result * (ABNORMAL) Comprehensive metabolic panel (04/29/2025 2:02 PM CDT)Component ValueRef RangeTest MethodAnalysis TimePerformed AtPathologist SignatureSodium 020123 - 145 mmol/L04/30/2025 3:35 AM CDTUU LABORATORYPotassium4.43.4 - 5.3 mmol/L04/30/2025 3:35 AM CDTUU LABORATORYCarbon Dioxide (CO2)2722 - 29 mmol/L 04/30/2025 3:35 AM CDTUU LABORATORYAnion Skc904 - 15 mmol/L04/30/2025 3:35 AM CDTUU LABORATORYUrea Yeuxhfdp83.98.0 - 23.0 mg/dL04/30/2025 3:35 AM CDTUU LABORATORYCreatinine0.690.51 - 0.95 mg/dL04/30/2025 3:35 AM CDTUU LABORATORY GFR Kpfzjnls47>60 mL/min/1.17s66804/30/2025 3:35 AM CDTUU LABORATORYComment:eGFR calculated using 2020 CKD-EPI equation.Calcium9.98.8 - 10.4 mg/dL04/30/2025 3:35 AM CDTUU IKDRSEEPOVIpvvxihp23268 - 107 mmol/L04/30/2025 3:35 AM CDTUU UCCTGBKFGCBbxwdfn636(H)70 - 99 mg/dL04/30/2025 3:35 AM CDTUU LABORATORY Alkaline Tbrgmkoxnzo6869 - 150 U/L04/30/2025 3:35 AM CDTUU FTULKEZQFNWXM216 - 45 U/L04/30/2025 3:35 AM CDTUU BOKOWQVVRYEGK604 - 50 U/L04/30/2025 3:35 AM CDT UU LABORATORYProtein Total6.96.4 - 8.3 g/dL04/30/2025 3:35 AM CDTUU LABORATORY Albumin4.43.5 - 5.2 g/dL04/30/2025 3:35 AM CDTUU LABORATORYBilirubin Total0.3 <=1.2 mg/dL04/30/2025 3:35 AM CDTUU LABORATORYSpecimen (Source)Anatomical Location / LateralityCollection Method / VolumeCollection TimeReceived Time BloodBLOOD SPECIMEN / UnknownVenipuncture / Kgrpjhr2804/29/2025 2:02 PM CDT 04/29/2025 2:02 PM CDT Narrative Authorizing ProviderResult TypeResult StatusDiana Ashley Cardona MDLAB - BLOOD ORDERABLESFinal ResultPerforming OrganizationAddressCity/State/ZIP Code Phone Number [facility] [place] [facility] [address] [place] [address], [place] * TSH with free T4 reflex (09/29/2024 9:42 AM CORPORATE OPERATIONS COMPLIANCE MANAGER)ComponentValueRef RangeTest MethodAnalysis TimePerformed AtPathologist SignatureTSH1.350.30 - 4.20 uIU/mL 09/30/2024 12:45 AM CSTUU LABORATORYSpecimen (Source)Anatomical Location / LateralityCollection Method / VolumeCollection TimeReceived TimeBloodBLOOD SPECIMEN / UnknownVenipuncture / Siboawq1409/29/2024 9:42 AM CST09/29/2024 9:42 AM CORPORATE OPERATIONS COMPLIANCE MANAGER Narrative Authorizing ProviderResult TypeResult StatusDiana Ashley Cardona MDLAB - BLOOD ORDERABLESFinal ResultPerforming OrganizationAddressCity/State/ZIP Code Phone Number [facility] [address], [address] [place] [phone] * Lipid panel reflex to direct LDL Fasting (09/29/2024 9:42 AM CORPORATE OPERATIONS COMPLIANCE MANAGER)Component ValueRef RangeTest MethodAnalysis TimePerformed AtPathologist Signature Jbsqyezbnat461<200 mg/dL09/30/2024 12:45 AM CSTUU ZQJYXHKRJCRkpvvqycfdure796 <150 mg/dL09/30/2024 12:45 AM CSTUU LABORATORYDirect Measure HDL60>=50 mg/dL 09/30/2024 12:45 AM CSTUU LABORATORYLDL Cholesterol Bmtmyswvmt33<100 mg/dL 09/30/2024 12:45 AM CSTUU LABORATORYNon HDL Zyafpxnntwd002<130 mg/dL09/30/2024 12:45 AM CSTUU LABORATORYPatient Fasting > 8hrs?Yes09/30/2024 12:45 AM CSTUU LABORATORYSpecimen (Source)Anatomical Location / LateralityCollection Method / VolumeCollection TimeReceived TimeBloodBLOOD SPECIMEN / UnknownVenipuncture / Sxxtfdq4409/29/2024 9:42 AM CST09/29/2024 9:42 AM CORPORATE OPERATIONS COMPLIANCE MANAGER Narrative [facility] - 09/30/2024 12:45 AM CORPORATE OPERATIONS COMPLIANCE MANAGER Cholesterol Desirable: < 200 mg/dL Borderline High: 200 - 239 mg/dL High: >= 240 mg/dL Triglycerides Normal: < 150 mg/dL Borderline High: 150 - 199 mg/dL High: 200-499 mg/dL Very High: >= 500 mg/dL Direct Measure HDL Female: >= 50 mg/dL Male: >= 40 mg/dL LDL Cholesterol Desirable: < 100 mg/dL Above Desirable: 100 - 129 mg/dL Borderline High: 130 - 159 mg/dL High: ??160 - 189 mg/dL Very High: >= 190 mg/dL Non HDL Cholesterol Desirable: < 130 mg/dL Above Desirable: 130 - 159 mg/dL Borderline High: 160 - 189 mg/dL High: 190 - 219 mg/dL Very High: >= 220 mg/dL Authorizing ProviderResult TypeResult StatusAshleyana Ashley Cardona MDLAB - BLOOD ORDERABLESFinal ResultPerforming OrganizationAddressCity/State/ZIP Code Phone Number [facility] [address] [place] [phone] * PULMONARY FUNCTION TEST - HIM SCAN (11/22/2023 12:00 AM CORPORATE OPERATIONS COMPLIANCE MANAGER)Anatomical Region LateralityModalityOtherSpecimen (Source)Anatomical Location / Laterality Collection Method / VolumeCollection TimeReceived Time11/22/2023 Narrative Authorizing ProviderResult TypeResult StatusProvider OutsidePFT ORDERABLESFinal Result * COLONOSCOPY (06/17/2019 11:46 AM CDT)ComponentValueRef RangeTest Method Analysis TimePerformed AtPathologist SignatureCOLONOSCOPYFaSt. Mary's Hospital Patient Name: Nori MarxDuong Ruth ?Procedure Date: 06/17/2019 11:46 AM ? Date of : 1940 ?Admit Type: Outpatient Age: 78 ? Gender: Female Attending MD: Khurram Azul MD ?? Total Sedation Time: 17_minutes continuous bedside 1:1 Procedure: ?Colonoscopy Indications: ?High risk colon cancer surveillance: Personal ?history of colonic polyps Providers: ?Khurram Azul MD (Doctor) Referring MD: ? Milvia Cardona MD (Referring MD) Medicines: ?Midazolam 2 mg IV, Fentanyl 100 micrograms IV, ?Ondansetron 4 mg IV Complications: ?No immediate complications. Procedure: ?Pre-Anesthesia Assessment: ?- Prior to the procedure, a History and Physical ?was performed, and patient medications and ?allergies were reviewed. The patient is competent. ?The risks and benefits of the procedure and the ?sedation options and risks were discussed with the ?patient. All questions were answered and informed ?consent was obtained. Patient identification and ?proposed procedure were verified by the physician ?in the procedure room. Mental Status Examination: ?alert and oriented. Airway Examination: normal ?oropharyngeal airway and neck mobility. Respiratory ?Examination: clear to auscultation. CV Examination: ?normal. Prophylactic Antibiotics: The patient does ?not require prophylactic antibiotics. Prior ?Anticoagulants: The patient has taken no previous ?anticoagulant or antiplatelet agents. ASA Grade ?Assessment: II - A patient with mild systemic ?disease. After reviewing the risks and benefits, ?the patient was deemed in satisfactory condition to ?undergo the procedure. The anesthesia plan was to ?use moderate sedation / analgesia (conscious ?sedation). Immediately prior to administration of ?medications, the patient was re-assessed for ?adequacy to receive sedatives. The heart rate, ?respiratory rate, oxygen saturations, blood ?pressure, adequacy of pulmonary ventilation, and ?response to care were monitored throughout the ?procedure. The physical status of the patient was ?re-assessed after the procedure. ?After obtaining informed consent, the colonoscope ?was passed under direct vision. Throughout the ?procedure, the patient's blood pressure, pulse, and ?oxygen saturations were monitored continuously. The ?colonoscopy was performed without difficulty. The ?patient tolerated the procedure well. The quality ?of the bowel preparation was good. ? Findings: ? The perianal and digital rectal examinations were normal. ? A few small-mouthed diverticula were found in the sigmoid colon and ? transverse colon. ? The exam was otherwise without abnormality on direct and retroflexion ? views. ? Impression: ? - Diverticulosis in the sigmoid colon and in the ?transverse colon. ?- The examination was otherwise normal on direct ?and retroflexion views. ?- No specimens collected. Recommendation: ? - No repeat colonoscopy. ? Diagnosis Code(s): ? --- Professional --- ? Z86.010, Personal history of colonic polyps Electronically signed by Khurram Azul MD Khurram Azul MD 06/17/2019 12:04:48 PM I was physically present for the entire viewing portion of the exam. Khurram Azul MD Number of Addenda: 0 Note Initiated On: 06/17/2019 11:46 AM MRN: ?[id number] Procedure Date: ? 06/17/2019 11:46:14 AM Scope Withdrawal Time: 0 hours 5 minutes 39 seconds Total Procedure Duration: 0 hours 12 minutes 25 seconds Estimated Blood Loss: ? Scope In: 11:45:39 AM Scope Out: 11:58:04 AMRADIOLOGY RESULTSSpecimen (Source)Anatomical Location / LateralityCollection Method / VolumeCollection TimeReceived Time06/17/2019 11:46 AM CDT Narrative Authorizing ProviderResult TypeResult StatusDiana Ashley Cardona MD PROCEDURESFinal ResultPerforming OrganizationAddressCity/State/ZIP CodePhone Number RADIOLOGY RESULTS * DX Hip/Pelvis/Spine (03/31/2019 2:42 PM CDT)Anatomical RegionLaterality ModalityDexaBone Mineral DensitySpecimen (Source)Anatomical Location / LateralityCollection Method / VolumeCollection TimeReceived Time Narrative 04/01/2019 7:25 AM CDT BONE DENSITOMETRY [address] [place] [address] 03/31/2019 ?? PATIENT: Nori Flores CHART: [id number] : ??1940 AGE: ??78 year old SEX: ??female REFERRING PROVIDER: ??Milvia Cardona MD ?? PROCEDURE: ??Bone density scanning was performed using DXA technology of the lumbar spine and hip. ??Scanning was performed on a [employer] scanner. ??Reporting is completed in the form of a T-score. ??The T-score represents the standard deviation from peak bone mass based on a young healthy adult. ?? REFERENCE T-SCORES: ?Normal ?-1.0 and greater ?Osteopenia ? Between -1.0 and -2.5 ?Osteoporosis ? -2.5 and less ? RISK FACTORS: ??Post-menopausal, Height loss of 2 inches, Parent history of osteoporosis CURRENT TREATMENT: ??Calcium with Vitamin D ?? FINDINGS: ?Lumbar Spine (L1-L4) ?T-score: ??1.6, marked degenerative changes present Forearm (radius 33%) ?T-score: ??-0.2 The right and left femurs are not acce ptable for evaluation due to previous arthroplasties. ?Lumbar (L1-L4) BMD: 1.396 ??Previous: 1.401 ?Forearm (radius 33%) BMD: 0.860 ??Previous: NA ?? Comparison is made to another DXA performed on the same [employer] ?? machine on 07/07/15. IMPRESSION Normal bone mineral density., Degenerative changes of the lumbar spine which may falsely elevate results. There has been no significant change in bone density of the lumbar spine. The forearm was not included on the previous study so comparison is not possible. ?? Recommendations include ensuring adequate Calcium and Vitamin D. The current NOF Guidelines recommend treatment for patients with prior hip or vertebral fracture, T-score -2.5 or below, or 10 year risk of any major osteoporotic fracture >20% or 10 year risk of hip fracture >3%, as calculated using the FRAX calculator (www.shef.ac.uk/FRAX or you can google FRAX). ?? This patient's risks based on available information, with the use of FRAX, are 9.4 % for major osteoporotic fracture and 2.2 % for hip fracture. Based on these guidelines, treatment (in addition to calcium and vitamin D) is not recommended for this patient, after ruling out other causes of osteoporosis. This is meant as an aid to clinical decision making; one must still use clinical judgement. Follow up can be considered in 5 years. Evangelina Bhatti M.D. Electronically signed ?? Authorizing ProviderResult TypeResult StatusAshleyana Ashley BARROS DEXA ORDERABLESFinal Result * FECAL COLORECTAL CANCER SCN-FIT (07/08/2010 7:00 AM CDT)ComponentValueRef RangeTest MethodAnalysis TimePerformed AtPathologist SignatureOccult Blood Scn FITNegativeNEGUNST. AGNES HOSPITALSpecimen (Source) Anatomical Location / LateralityCollection Method / VolumeCollection Time Received Time07/08/2010 7:00 AM CDT07/08/2010 9:19 AM CDT Narrative Authorizing ProviderResult TypeResult Ronald Nash MDLABORATORYFinal ResultPerforming OrganizationAddressCity/State/ZIP CodePhone Number [facility] [address] [place] [address] from Last 3 Months or Most Recently Relevant to Health Maintenance Insurance * Guarantor: Nori Flores LAccount TypeRelation to PatientDate of BirthPhone Billing AddressPersonal/LvogapXbsc42/23/1941 none (Work) [address] [place] [address] Advance Directives For more information, please contact: [phone] * Full Code (Latest Code Status on File) Date ActivatedDate InactivatedComments05/06/2025 5:50 PM05/07/2025 2:51 PMAll basic and advanced life-sustaining interventions are performed as appropriateQuestion AnswerCommentsCode status determined by:* Discussion with patient/ legal decision maker Care Teams Team MemberRelationshipSpecialtyStart DateEnd Date Milvia Cardona MD [address] [place] [address] PCP - GeneralInternal Medicine07/08/13 Milvia Cardona MD [address] [place] [address] Assigned PCP08/04/18 Carmen Diaz MD [address] [place], [place] [address] HospitalistEndocrinology, Diabetes, and Metabolism03/13/22 Herbert Rdz MD [address] [place], [place] [address] Assigned Surgical Provider03/20/24 Monie Holbrook Gavin [address] [place] [address] PharmacistPharmacist03/27/24 Monie Holbrook Gavin [address] [place], [place] [address] Assigned [place] Pharmacist04/20/24
--- OUTSIDE RECORDS SUMMARY | 2025-10-21 09:26 | XMS_ITS | Patient Health Record ---
Author Organization [facility] Address [address] [place] [address] Phone [phone] Care Team Providers Care Coach Driver Name Role Phone Milvia Lindsay Primary Care Provider Nick LANGFORD MD, DIANNA Unavailable [phone] Alisa Oconnor Unavailable Allergies Allergen (clinical drug ingredient) Drug/Non Drug Allergy documented on EMR Reaction Allergy Type Onset Date Status Substance with sulfonamide s tructure and antibacterial mechanism of action (substance) Sulfa Antibiotics Unknown Drug Allergy Active Results Component Value Reference Range Notes CT Sinuses, Fusion/IGS (in-h ouse, today) Order date: 11/05/2024 Reviewed date:12/22/2024 12:47:16 PM Interpretation:normal with out evidence for sinusitis Performing Lab: Notes/Report: normal with out evidence for sinusitis Reason For Referral No Information Medications Medication SIG (Take, Route, Frequency, Duration) Notes Start Date End Date Diagnosis (ICD Code) Status tylenol ActivebusPIRone HClActivePantoprazole SodiumActiveTrelegy ElliptaActive GabapentinActiveFluticasone FuroateActiveSimvastatinActiveLosartan Potassium ActiveTravatanActiveAzelastine HCl 137 MCG/SPRAY Solution2 puffs (1 spray in each nostril) Nasally Twice a day; Duration: 30 days04/28/2025Hearing loss, unspecified hearing loss type, unspecified laterality (ICD_10 - H91.90)Active Social History Tobacco Use: Social History Observation Description Date Details (start date - stop date) Never Smoker NA - NA Sex Observation Social History Observation Description Sex Observation Female Social History Alcohol Use:Social InfoQuestionAnswerNotesRecreational drugsRecreational Drug Use:NoDrug/Alcohol:Social InfoQuestionAnswerNotesAUDIT-C (Standard)Did you have a drink containing alcohol in the past year?PwZqxouw5KubepadgbsivpkNqhnvplo Tobacco Use:Social InfoQuestionAnswerNotesTobacco Control (Standard)Tobacco use: Nonsmoker Problems Problem Type SNOMED Code ICD Code Dates Problem Status W/U Sta tus Risk Notes Problem Chronic sinusitis (88873648) Other chronic sinusitis (J32.8) Added On:04/03/2023 Active confirmed ProblemDizziness (589732564)Dizziness (R42) Added On:04/03/2023 ActiveconfirmedProblemThroat irritation (866943703)Throat irritation (J39.2) Added On:10/09/2023 ActiveconfirmedProblemSensorineural hearing loss, bilateral (828919458)Bilateral sensorineural hearing loss (H90.3) Added On:08/26/2024 ActiveconfirmedProblemImpacted cerumen (91068510)Right ear impacted cerumen (H61.21) Added On:04/03/2023 ActiveconfirmedProblemNasal dryness (27274261)Nasal dryness (J34.89) Added On:10/09/2023 ActiveconfirmedProblemDisorder of tympanic membrane (76562249)Tympanic membrane retraction, 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) Added On:04/03/2023 ActiveconfirmedProblemChronic otitis externa of left external auditory canal (disorder) (7649622517426769)Chronic otitis externa of left ear, unspecified type (H60.62) Added On:04/15/2019 ActiveconfirmedProblemHearing loss (07663479)Hearing loss, unspecified hearing loss type, unspecified laterality (H91.90) Added On:04/15/2019 ActiveconfirmedProblemLaryngopharyngeal reflux (211734305)Laryngopharyngeal reflux (LPR) (K21.9) Added On:09/16/2024 ActiveconfirmedProblemChronic rhinitis (30389838)Chronic rhinitis (J31.0) Added On:04/19/2023 ActiveconfirmedProblemDysfunction of both eustachian tubes (0857011088414633) Dysfunction of both eustachian tubes (H69.93) Added On:10/09/2023 Activeconfirmed Vital Signs Vital Sign Value Notes Appt Date Height-cm 149.86 cm 04/28/2025Weight-kg92.08 kg04/28/20251005Qorjks58 in04/28/20250490Nqthlo691 lbs 04/28/2025BMI41 kg/m204/28/2025 Encounters Date Time Type Facility Location Provider Diagnosis 11/05/19 09:00 AM Est. Patient Visit Mod. Complex (02234) [facility] [address] [place] [phone] DIANNA LANGFORD Dizziness R42 ; Tympanic membrane retraction, right H73.891 ; PND (post-nasal drip) R09.82 ; Laryngopharyngeal reflux (LPR) K21.9 and Hearing loss, unspecified hearing loss type, unspecified laterality H91.90 04/28/20 25 09:15 AM Est. Patient Visit Moderate (31602) [facility] [address] [facility] [address] [place] [phone] DIANNA LANGFORD Hearing loss, unspecified hearing loss type, unspecified laterality H91.90 04/28/20 25 09:45 AM Office Visit [facility] [address] [place] [phone] Alisa Simpsonno Bilateral sensorineural hearing loss H90.3 and Dysfunction of both eustachian tubes H69.93 04/23/20 25 01:58 PM Telephone Encounter [facility] [address] [place] [address] DIANNA LANGFORD Assessments Encounter Date Diagnosis (ICD Code) Assessment Notes Treat ment Notes Section Notes 11/05/2024 Dizziness (ICD-10 - R42) I again briefly reviewed her VNG study which was normal. She does not describe typical vestibular symptoms and with a negative VNG I doubt that she has a peripheral vestibular etiology for her dizziness. I suspect most of her problems are due to balance homeostasis which are likely related to age and degenerative changes. She has worked with her primary care provider and physical therapy so I am not certain much else can be done to help her out. She is on multiple medications and it is possiblethere could be some dizziness side effects with this, but I encouraged her to discuss this with herprescribing providers. Specifically her buspirone may have some dizziness side effects, although the anxiety it treats could also be a source for her dizziness.11/05/2024Tympanic membrane retraction, right (ICD-10 - H73.891)04/28/2025Hearing loss, unspecified hearing loss type, unspecified laterality (ICD-10 - H91.90)On exam her ears look clear without cerumen impactions and the right TM did look somewhat thickened, but I did not appreciate an effusion in that ear and the left ear looked entirely clear. Her audiogram shows minimal progression of her bilateral sensorineural hearing loss but there is no conductive component and she had type a tympanograms. Discrimm is poor. I reassured her I do not see ear effusions and I wonder if her sense of ear fullness is due to eustachian tube dysfunction. I suggested atrial of Astelin and encouraged auto insufflation. She will hold off on the Atrovent while she is using the azelastine spray. She does not require ear tubes and I do not think there is enough of a change that a new hearing aid assessment would be helpful.04/28/2025ilateral sensorineural hearing loss (ICD- 10 - H90.3)04/28/2025Dysfunction of both eustachian tubes (ICD-10 - H69.93) 11/05/2024PND (post-nasal drip) (ICD-10 - R09.82)She remains bothered by a feeling of postnasal phlegm that did respond to the Atrovent, but the side effects of the spray bothered her. I suggested cutting back on the Atrovent dose to 1 spray each side twice a day to see if this helps with the postnasal drainage but minimizes any potential dizzines. I have not seen dizziness as a side effect of this spray before. I recommended CT imaging to ruleout an indolent sinus infection which could also cause similar symptoms, and the scan today looked normal with out evidence for sinusitis.11/05/2024Laryngopharyngeal reflux (LPR) (ICD-10 - K21.9)11/05/2024Hearing loss, unspecified hearing loss type, unspecified laterality (ICD-10 - H91.90)11/05/2024OtherBody mass index material was published Plan Of Treatment No Information Insurance Providers Payer Name Payer Address Payer Phone Subscriber Number Group Number Insured Name Patient Relationship to Insured Coverage Start Date Coverage End Date MEDICARE [address] [place], [place] [phone] [id number] Miranda - patient is the [id number]/29/[address] [id number], LavonneSelf - patient is the [id number] 2023 Medical (General) History Medical History History ICD Code HX of Lung CA COPDNeuropathysleep apneacataractsSurgical History Surgery Date(Month/Year) Hospitalization History Reason Date(Month/Year)
--- OUTSIDE RECORDS SUMMARY | 2025-10-21 09:26 | XMS_ITS | Clinical Summary ---
Author Organization [facility] Address [address] [place] [address] Care Team Providers Care Ring Making Machine Operator Name Role Phone Milvia Cardona MD Primary Care Provider Allergies Active AllergyReactionsCriticalityNoted DateCommentsAtorvastatinNausea Only 08/12/20244183PcddhjyhqmXflao78/15/2024NiacinNausea Only08/12/2024ravastatinNausea Only08/12/2024Sulfa (Sulfonamide Antibiotics)Hives08/12/2024 Medications MedicationSigDispense QuantityRefillsLast FilledStart DateEnd DateStatus NIASPAN 1000 MG ORAL TBSR ? Active acetaminophen (TYLENOL EXTRA STRGTH) 500 mg tablet Take 1,000 mg by mouth.3Active losartan (COZAAR) 100 mg tablet Take 100 mg by mouth once daily.5Active simvastatin (ZOCOR) 20 mg tablet 4Active busPIRone (BUSPAR) 5 mg tablet Take 1 tablet in the morning, 1 tablet at noon and 2 tablets at bedtime 11/24/2024tive gabapentin (NEURONTIN) 300 mg capsule TK ONE C PO QHS UTD5Active bisacodyL (DULCOLAX) 5 mg delayed release tablet Take 5 mg by mouth.Active Travatan Z 0.004 % ophthalmic solution One drop in each eye at ifpabnb7603/26/2024ctive pantoprazole (PROTONIX) 20 mg tablet Take 1 Tablet by mouth once daily.10/14/2024Active fluticasone rlz-knpbksfmwuhh-uscpoxmxdf (TRELEGY ELLIPTA) 100-62.5-25 mcg inhaler Indications:Chronic obstructive pulmonary disease, unspecified COPD type (HC) Inhale 1 Puff by mouth once daily. Risne and spit after use. 180 Each 5Active albuterol HFA (Ventolin HFA) 90 mcg/actuation inhaler Indications:chronic obstructive pulmonary diseaseInhale 2 Puffs by mouth every 4 hours if needed for Shortness Of Breath or Wheezing. 1 Each 5Active CPAP Indications:Obstructive sleep apnea syndromeCPAP (E0601) machine for home use at pressure: same , Choice of mask (A7030 or A7034) w/full face cushion (A7031) x1/mo, nasal cushion (A7032) x2/mo, or nasal pillows (A7033) x 2/mo; Length of Need: 99 months; use: Daily. DME CORNER 3 Each 5Active fluticasone lgw-amteqpqjkcqk-raoabklkgd 100-62.5-25 mcg inhaler Indications:Chronic obstructive pulmonary disease, unspecified COPD type (HC) Inhale 1 Puff by mouth once daily. 180 Each 5Active Active Problems ProblemNoted DateDiagnosed DateChronic obstructive pulmonary zhniibj2511/27/2024 DETACHMENT, OLD, RETINAL, PARTIAL -OD11/07/2001CATARACT, NUCLEAR-MILD OS 11/07/2001PSEUDOPHAKIA-OD11/07/2001 Family History Medical HistoryRelationNameCommentsGeneticOtherhypertension - motherRelationName StatusCommentsOther Social History Tobacco UseTypesPacks/DayYears UsedDateSmoking Tobacco: NeverSmokeless Tobacco: Never Tobacco Cessation:Counseling Given: Not Answered CommentsUnknownSex and Gender InformationValueDate RecordedSex Assigned at BirthNot on fileLegal EynSjwldc73/12/2024 4:27 AM CDTGender IdentityNot on fileSexual OrientationNot on file Last Filed Vital Signs Vital SignReadingTime TakenCommentsBlood Rdubycen294/72011/27/2024 9:45 AM HEALTH INSURANCE SPECIALIST Nexvr0014/30/2025 9:45 AM KGFAadryqyghru65.9 ??C (98.4 ??F)11/27/2024 9:45 AM CSTRespiratory Rate--Oxygen Htmhmjrpyw76%11/27/2024 9:45 AM CSTInhaled Oxygen Concentration--Ziwyey88 kg (205 lb)11/27/2024 9:45 AM CSTpatient reportedHeight 149.9 cm (4' 11)11/27/2024 9:45 AM CSTpatient reportedBody Mass Index41.4 11/27/2024 9:45 AM HEALTH INSURANCE SPECIALIST Plan of Treatment Health MaintenanceDue DateLast DoneCommentsTetanus zwyzycz6412/21/1953epression screening for age 12+1954Pneumococcal series for age 50+ (1 of 2 - PCV) 1961Zoster (shingles) series for age 50+ (1 of 2)1992DEXA/DXA scan for age 65+2007Medicare Wellness for age 65+2007RSV vaccine for adults or (1 - 1-dose 75+ series)2017COVID-19 vaccine series (3 - season), 08/29/2023Influenza Vaccine (#1) 5BMI (ht and wt on same day) for age 18+Hepatitis B series for 19+Aged OutNo longer eligible based on patient's age to complete this topic Insurance Care Teams Team MemberRelationshipSpecialtyStart DateEnd Date Angélica-Milvia Perez MD PCP - GeneralInternal Medicine07/28/24
[2025-10-21 09:36] VITALS: BP 147/74; PULSE 80; RESP 20; TEMP 36.7; O2SAT 96; BMI 40.0
--- NOTE | 2025-10-21 10:05 | ED_ITS ---
HPI - General Adult General Date Seen: 10/21/25 Chief complaint: Cough Stated complaint: cough, head congestion Time Seen by Provider: 10/21/25 10:05 Source: patient and RN notes reviewed Mode of arrival: ambulatory Limitations: no limitations History of Present Illness HPI narrative: Nori is a very pleasant 84-year-old female with known history of right lung cancer status post right lobectomy 1997, history of COPD hypertension hyperlipidemia who comes to the emergency room for evaluation regarding a cough. Cough has been ongoing for approximately 4-5 days and is associated with phlegm production but the phlegm has been basically whitish in color. She notes that she has been coughing quite a bit so she does have a sore throat. No runny nose no ear pain no fever with this. At home she does have 2 different inhalers that she uses. No vomiting with this. Unfortunately patient is currently being evaluated for suspected recurrent lung cancer. She does have a biopsy scheduled in the near future. Related Data Home Medications ?Medication ?Instructions ?Recorded ?Confirmed azelastine 137 mcg (0.1 %) nasal 1 spray intranasal BI D 10/21/25 10/21/25 spray buspirone 5 mg tablet 5 mg PO 10/21/25 Allergies Allergy/AdvReac Type Severity Reaction Status Date / Time Sulfa (Sulfonamide Allergy Mild Verified 10/21/25 09:40 Antibiotics) Review of Systems Status of ROS: Reports: 10 or more systems reviewed and unremarkable except as noted in History and below Const: Reports: fatigue; Denies: fever or chills Eyes: Denies: change in vision or eye discharge ENMT: Reports: throat pain (Mild); Denies: throat swelling, difficulty swallowing, nasal discharge or nasal congestion Cardio: Reports: shortness of breath with exertion; Denies: chest pain Resp: Reports: shortness of breath, cough and wheezing GI: Denies: abdominal pain, nausea, vomiting or difficulty swallowing : Denies: painful urination Endo: Reports: fatigue Allergy/Immuno: Reports: wheezing; Denies: throat swelling PFSH PFSH Social History Smoking Status: Never smoker Do you use any of these nicotine containing products: None Second hand tobacco smoke exposure: No How often do you have a drink containing alcohol: never AUDIT-C Alcohol total score: 0 Non-prescribed substance use: denies use Exam Narrative: Exam Narrative: Alert and oriented no acute distress. External ears eyes nose clear. Oral cavity with moist mucous membranes. No erythema exudate in the posterior oropharynx. I do not note any suspicious lymphadenopathy. Heart is with regular rate and rhythm. Lungs are without crackles. Decreased lung sounds in the bases right greater than left. Abdomen soft lower extremities with scant peripheral edema. Moving all extremities. Const: Vital Signs, click to edit/add: Vital Signs - 24 hr 10/21/25 09:36 Temperature 98.1 F Pulse Rate [Pulse Oximeter] 80 Respiratory Rate 20 Blood Pressure [Ri ght Upper Arm] 147/74 H Pulse Oximetry 96 Oxygen Delivery Me thod Room Air Documenting provider has reviewed patient's vital signs: yes Course Course ED Course: Differential diagnosis includes but is not limited to pneumonia, viral bronchitis, COPD exacerbation. Currently awaiting triple swab but also will order x-ray. Vital Signs Vital signs: Initial Vital Signs Temperature 98.1 F 10/21/25 09:36 Temperature Source Temporal Artery Scan 10/21/25 09:36 Pulse Rate 80 10/21/25 09:36 Pulse Rhythm Regular 10/21/25 09:36 Pulse Strength 3+ Normal 10/21/25 09:36 Respiratory Rate 20 10/21/25 09:36 Blood Pressure 147/74 H 10/21/25 09:36 Blood Pressure Mean 98 10/21/25 09:36 Blood Pressure Position Sitting 10/21/25 09:36 Pulse Oximetry 96 10/21/25 09:36 Oxygen Delivery Method Room Air 10/21/25 09:36 Vital Signs Temperature 98.1 F 10/21/25 09:36 Pulse Rate 80 10/21/25 09:36 Respiratory Rate 20 10/21/25 09:36 Blood Pressure 147/74 H 10/21/25 09:36 Pulse Oximetry 96 10/21/25 09:36 Oxygen Delivery Method Room Air 10/21/25 09:36 Temperature 98.1 F 10/21/25 09:36 Pulse Rate 80 10/21/25 09:36 Respiratory Rate 20 10/21/25 09:36 Blood Pressure 147/74 H 10/21/25 09:36 Pulse Oximetry 96 10/21/25 09:36 Oxygen Delivery Method Room Air 10/21/25 09:36 Medical Decision Making MDM Narrative Medical decision making narrative: 1. Bronchitis- patient presenting with cough which likely has exacerbated her COPD. Given her history and negative triple swab will treat with doxycycline 100 mg p.o. b.i.d. times 7 days. Encourage patient to continue to use her inhalers. She has not traditionally used steroids in the past and thus I will hold off on steroids she does not have any active wheezing. She is to return to the ER for further evaluation for fever, vomiting, worsening symptoms. 2. Disposition-home at this time. Return as needed. Medical Records Medical records reviewed: Yes I reviewed the patient's medical records Medical records narrative: Nursing staff able to obtain recent note from 10/05/2025 regarding need for biopsy and further evaluation for suspicious right lung mass. Lab Data Lab results reviewed: Yes I reviewed the patient's lab results Labs: Lab Results 10/21/25 Range/Units 09:44 SARS-CoV-2 (PCR) Negative SARS-CoV-2 (Negative) Influenza Type A (PCR) Negative PCR FLU A (Negative) Influenza Type B (PCR) Negative PCR FLU B (Negative) RSV (PCR) Negative PCR RSV (Negative) Imaging Data Chest x-ray: Attestation: I have reviewed the pertinent imaging results. My impression: I do not note any acute infiltrates or widened mediastinum Radiologist's impression: The cardiomediastinal silhouette and pulmonary vasculature are within normal limits. Right hilar surgical clips. There is no focal airspace consolidation, pleural effusion, or pneumothorax. Slight elevation of the right hemidiaphragm. No displaced fractures. Degenerative changes of the shoulders and spine. Lower cervical ACDF hardware. IMPRESSION: No acute cardiopulmonary process. Discharge Plan Discharge Clinical Impression: URI (upper respiratory infection), History of COPD Patient Disposition: Home, Self-Care Condition: Unchanged Additional Instructions: Start antibiotic today. Continue with your inhalers at home. For worsening symptoms return to the ER especially for fever, vomiting and as needed. Prescriptions: No Action buspirone 5 mg tablet 5 mg PO azelastine 137 mcg (0.1 %) spray,non-aerosol 1 spray INTRANASAL BID Follow Up/Referrals: Provider,Not a Local [Primary Care Provider, Family Practice] Stand Alone Forms: [email or web address] Info Instructions
--- NOTE | 2025-10-21 10:14 | CRLHL7_ITS ---
For Patients: As a result of the Cures Act, medical imaging exams and procedure reports are released immediately into your electronic medical record. You may view this report before your referring provider. If you have questions, please contact your health care provider. INDICATION: : Cough. Had surgery on the Right lung and 2 lobes removed. COMPARISON: None TECHNIQUE: One view(s) of the chest FINDINGS: The cardiomediastinal silhouette and pulmonary vasculature are within normal limits. Right hilar surgical clips. There is no focal airspace consolidation, pleural effusion, or pneumothorax. Slight elevation of the right hemidiaphragm. No displaced fractures. Degenerative changes of the shoulders and spine. Lower cervical ACDF hardware. IMPRESSION: No acute cardiopulmonary process. Dictated by Shemar Castorena MD @ 10/21/2025 10:39:15 AM (Electronically Signed)
[2025-10-21 10:28] LABS: PCR FLU A Negative PCR FLU A (Negative); PCR FLU B Negative PCR FLU B (Negative); PCR RSV Negative PCR RSV (Negative); SARS PCR* Negative SARS-CoV-2 (Negative)
--- OUTSIDE RECORDS SUMMARY | 2025-10-21 11:02 | XMS_ITS ---
Author Name Interface, [id number] lity Address [address] [place] [address] [facility] Address [address] [place] [address] Support Name Relationship Address Phone LILIBETH FLORES [...] Fill Status Indication 09/10/2023 Calcium Carbonate Oral etnirpsvefs07/14/2022Gabapentin QsmkRIEzilgjw15/14/2022yanocobalamin Oraldaily bgrzyb1109/11/20226810Uzdidxbddzp-Juanaecff-Avudopns Inhaler 100 mcg-62.5 mcg-25 mcg/tqluppvltgalcbh34/14/2022spirin Vazasdeehm56/13/2023cetaminophen OralPRN ldidvb6509/10/2023lbuterol HFA Inhaler 90 mcg/avohpwqyilsufde78/14/2022Losartan YmzmVUJsvuahv89/13/2023rednisone Cjgfydibam50/14/2022cetaminophen Oralactive 09/10/2023Hydrochlorothiazide Dizwabvbvumpovz72/14/2022imvastatin Oralactive 09/11/2022antoprazole (Sodium) Oral Delayed Pchojzzwjtijzfhfcd78/14/2022 escitalopram Oral Wajnodlchnvvjkvvl43/13/2023Probiotics Oraldailyactive Problems Diagnosis Status Date of Diagnosis [...] her as soon as this is completed. Timotoe Goodwin MD [facility] Timoteo Goodwin MD Copy to: Milvia Lindsay MD FAX Rufino Nash MD (Referring) Electronically signed by Timoteo Goodwin MD 09/16/2025 10:52 DESK TOP PUBLISHER
--- OUTSIDE RECORDS SUMMARY | 2025-10-21 11:02 | XMS_ITS ---
Author Name Interface, [id number] lity Address [address] [place] [address] [facility] Address [address] [place] [address] Support Name Relationship Address Phone LILIBETH FLORES [...] Fill Status Indication 09/10/2023 Calcium Carbonate Oral satdzyyiekh19/14/2022Gabapentin VpuqGPAefkdes85/14/2022yanocobalamin Oraldaily vvbono7209/11/20225354Orqehtfvzjp-Omtngefdh-Tvpkdbjz Inhaler 100 mcg-62.5 mcg-25 mcg/zwrkeiktokdkfru56/14/2022spirin Fjuojxjlgw51/13/2023cetaminophen OralPRN yzzxoq6209/10/2023lbuterol HFA Inhaler 90 mcg/mtganzslpdvklkb77/14/2022Losartan TwoyKIFaoklmg59/13/2023rednisone Ousmbhdlix49/14/2022cetaminophen Oralactive 09/10/2023Hydrochlorothiazide Ukiounljdvhalwa35/14/2022imvastatin Oralactive 09/11/2022antoprazole (Sodium) Oral Delayed Ckfkiculzvngwgmgrw58/14/2022 escitalopram Oral Ynsfarjnrxptelzvl22/13/2023robiotics Oraldailyactive Problems Diagnosis Status Date of Diagnosis [...] as this is completed. Timoteo Goodwin MD [facility] Timoteo Goodwin MD Copy to: Milvia Lindsay MD FAX Rufino Nash MD (Referring) Electronically signed by Timoteo Goodwin MD 09/16/2025 10:52 SENIOR PROGRAM ANALYST * Thoracic Visit Note Patient Name: NORI [...] with follow-up CT scan. Timoteo Goodwin MD [facility] Timoteo Goodwin MD Copy to: Milvia Lindsay MD FAX Rufino Nash MD (Referring) Electronically signed by Timoteo Goodwin MD 09/16/2023 14:02 SENIOR PROGRAM ANALYST
--- OUTSIDE RECORDS SUMMARY | 2025-10-21 11:02 | XMS_ITS ---
Author Name Interface, [id number] lity Address [address] [facility] [address] [facility] [address] [place] [address] [facility] Address [address] [facility] [address] [place] [address] Support Name Relationship Address Phone LILIBETH FLORES [...] Fill Status Indication 09/10/2023 Calcium Carbonate Oral hceokiloweq32/14/2022Gabapentin UypjSIOaqasmf72/14/2022yanocobalamin Oraldaily wtyifx7909/11/20224950Xkwkpwlpqda-Zfkzbarzb-Pxnsmzqc Inhaler 100 mcg-62.5 mcg-25 mcg/tnvmzvdihrglnut00/14/2022spirin Jorsnplrfg21/13/2023cetaminophen OralPRN kprwdc6109/10/2023lbuterol HFA Inhaler 90 mcg/czrqdyxnqshhhgi82/14/2022Losartan PgiyYLHcthaqy63/13/2023rednisone Xzwkrkcjun30/14/2022cetaminophen Oralactive 09/10/2023Hydrochlorothiazide Tcndoqcmryvpmhp45/14/2022imvastatin Oralactive 09/11/2022antoprazole (Sodium) Oral Delayed Qjconbmlbrwkiaevbz90/14/2022 escitalopram Oral Guaqzyhlxigmmrwyg76/13/2023Probiotics Oraldailyactive Problems Diagnosis Status Date of Diagnosis [...] of :??1940 Date:??09/14/2025 THORACIC VISIT NOTE ??Mrs. Nroi Flores??is seen in follow-up visit on 09/14/2025. [...] as this is completed. Timoteo Goodwin MD [facility] Timoteo Goodwin MD Copy to: Milvia Lindsay MD FAX Rufino Nash MD (Referring) Electronically signed by Timoteo Goodwin MD 09/16/2025 10:52 [employer]
== END 2025-10-21 11:36 | disposition home or self-care (01) ==
PROVIDERS: Emergency Provider Family Medicine
DX: J40 Bronchitis, not specified as acute or chronic (principal); J44.9 Chronic obstructive pulmonary disease, unspecified; Z85.118 Personal history of other malignant neoplasm of bronchus and lung
CPT/HCPCS: 71045; 87631; 99284